=== PATIENT | male | born 1990 | race Caucasian/White ===

== ENCOUNTER 2016-09-19 13:38 | Inpatient (IN) | payer OTHER ==
[~2016-09-19] VITALS: Ht 188 cm; Wt 69.4 kg
[~2016-09-19 13:38] MED LIST: BACT800T5 PO; CYCL10TA PO; CYMB60CA3 PO; MOBI15TA PO; PRIL20CA PO; TYLE325T5 PO; ULTR50TA PO
[2016-09-19 15:24] LABS: MEAN CORPUSCULAR HEMOGLOBIN 31.6 pg (27.0-33.0); MEAN CORPUSCULAR HGB CONC 36.2 g/dl (32.0-36.5); MEAN CORPUSCULAR VOLUME 87.2 fl (80.0-96.0); RED CELL DISTRIBUTION WIDTH 12.4 % (11.5-14.5); WHITE BLOOD COUNT 7.7 K/mm3 (4.0-10.0)
[2016-09-19 15:46] LABS: AMPHETAMINES LEVEL URINE NEGATIVE (NEGATIVE); BENZODIAZEPINES URINE NEGATIVE (NEGATIVE); COCAINE METABOLITE URINE NEGATIVE (NEGATIVE); CONTROL LINE INT CTR LINE PRESENT; METHADONE URINE NEGATIVE (NEGATIVE); OPIATES URINE NEGATIVE (NEGATIVE); TRICYCLIC ANTIDEPRESS URINE NEGATIVE (NEGATIVE)
[2016-09-19 15:54] LABS: ALBUMIN 4.3 GM/DL (3.2-5.2); ALBUMIN/GLOBULIN RATIO 1.43 (1.00-1.93); ALKALINE PHOSPHATASE 89 U/L (45-117); ALT/SGPT 29 U/L (12-78); ANION GAP 9 MEQ/L (8-16); AST/SGOT 12 U/L (15-37); BILIRUBIN,DIRECT 0.2 MG/DL (0.0-0.2); BILIRUBIN,TOTAL 0.8 MG/DL (0.2-1.0); BLOOD UREA NITROGEN 14 MG/DL (7-18); CALCIUM LEVEL 9.6 MG/DL (8.5-10.1); CARBON DIOXIDE LEVEL 27 MEQ/L (21-32); CHLORIDE LEVEL 105 MEQ/L (98-107); CREATININE FOR GFR 0.91 MG/DL (0.70-1.30); GLOMERULAR FILTRATION RATE > 60.0 (>60); GLUCOSE, FASTING 122 MG/DL (70-105); POTASSIUM SERUM 4.3 MEQ/L (3.5-5.1); SODIUM LEVEL 141 MEQ/L (136-145); TOTAL PROTEIN 7.3 GM/DL (6.4-8.2)
[2016-09-19] MEDS ORDERED: LAMO150T PO (19:39)
[2016-09-19] MEDS ORDERED: GABA300C3 PO (19:39)
[2016-09-19] MEDS: lamoTRIgine 100MG TAB PO SCH (21:00)
[2016-09-19] MEDS: GABAPENTIN 300 MG CAP PO SCH (21:00)
--- NOTE | 2016-09-20 00:28 | EDDOCDS ---
Physician Documentation [facility] Name: Jef Multani Age: 25 yrs Sex: Male : 1990 Arrival Date: 09/19/2016 Time: 13:38 Bed 31 Private MD: Haile Vargas P Disposition: 09/19 18:52 Critical Care: Critical care not applicable. pc Disposition: 09/19/16 18:55 Hospitalization ordered by Harjeet Mathew for Inpatient Admission. Preliminary diagnosis are Major depressive disorder, recurrent, moderate, Suicidal ideations, Intentional self-harm by knife, Laceration without foreign body of forearm - multiple, bilateral: blake to be removed in 10 days. - Bed requested for Admit. - Status is Inpatient Admission. rw1 - Condition is Stable. - Problem is new. - Symptoms have improved. HPI: 14:37 This 25 yrs old Male presents to ER via Police [employer] with complaints of pc Suicidal Ideation. 14:37 The history is obtained from the patient. The patient presents to the emergency pc department with depression, suicide attempt, self-injury. At their worst, the symptoms were moderate. In the emergency department, the symptoms are unchanged. He became upset about an upcoming court date and took a knife to both forearms. He inflicted multiple superficial, non-gaping linear lacerations on his left forearm. He inflicted similar on his right forearm but with one that is 8cm in length and gaping, which will require closure. The patient has experienced similar episodes in the past, chronically. The patient has been recently seen by a psychiatrist. Historical: - Allergies: no known allergies; - Home Meds: 1. Cymbalta 60 mg Oral cpDR 2 caps once daily (Last dose: 09/19/2016 07:00) 2. Mobic 15 mg oral tab 1 tab once daily (Last dose: 09/19/2016 08:00) 3. Prilosec 40 mg Oral cpDR 1 cap once daily (Last dose: 09/19/2016 07:00) 4. Lamictal 150 mg Oral tab 1 tab 2 times per day (Last dose: 09/19/2016 07:00) 5. 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 - Hospitalizations: : No recent hospitalization is reported. - Immunization history:: Last tetanus immunization: < 5 years ago. - Family history: Not pertinent. - Social history:: the patient smokes cigarettes 2ppd the patient drinks alcohol. ROS: 14:37 All systems are negative except as listed. The psychiatric and neurological components pc are also addressed in the HPI. Exam: 14:37 General Appearance: alert, no acute distress. pc 14:37 ENT: ear, nose and throat normal, pharynx normal. 14:37 Eyes: pupils equal, round and reactive to light, extraocular motions intact. 14:37 Neck: The exam reveals no acute abnormalities. ROM is normal and painless. No nuchal rigidity is noted.. 14:37 Respiratory: breathing is even and unlabored, breath sounds are normal. 14:37 Cardiovascular: regular pulse rate, regular heart rhythm, normal heart sounds, equal and full pulses bilaterally. 14:37 Abdomen: soft, non-tender, no organomegaly, normal bowel sounds. 14:37 Skin: skin color is normal, warm, dry. 14:37 Extremities: grossly normal except: noted in the palmar aspect of left forearm: multiple linear superficial lacerations with hemostasis noted. All will be closed with Steri-Strips , noted in the palmar aspect of right forearm: multiple linear superficial lacerations noted with hemostasis. One 8cm laceration with wound edges 1cm separation that will require blake. 14:37 Neuro: alert, oriented to person, place and time, cranial nerves normal as tested, no motor deficits, no sensory deficits. 14:37 Psych: mood is normal, affect is appropriate. Vital Signs: 13:40 BP 154 / 89; Pulse 122; Resp 18; Temp 96.8; Pulse Ox 97% ; Weight 68.04 kg / 150 lbs; elp Height 6 ft. 2 in. (187.96 cm); Pain 0/10; 17:04 BP 132 / 81; Pulse 100; Resp 18; Temp 97.6; Pulse Ox 98% on R/A; dpm 20:40 BP 115 / 67; Pulse 98; Resp 16; Temp 98.8(TE); Pulse Ox 97% on R/A; Pain 0/10; rw1 0107 00:12 BP 121 / 81; Pulse 98; Resp 16; Temp 98.1(TE); Pulse Ox 96% on R/A; Pain 0/10; rw1 09/19 13:40 Body Mass Index 19.26 (68.04 kg, 187.96 cm) elp Procedures: 09/19 14:36 Laceration repair:. pc Laceration: 14:36 Wound Repair of 8cm ( 3.1in ) full thickness laceration to palmar aspect of right pc forearm. Linear shaped.. Hemostasis noted.. Distal neuro/vascular/tendon intact. Anesthesia: None with None. Wound prep: Simple cleansing with hibiclenz by provider, Wound irrigation with saline by provider. Skin closed with 10 thin layer [place] using Staple gun. Dressed with 4x4's, Kerlix. Patient tolerated well. MDM: 14:18 Consult PFS/PSA/Mask Former: Patient's case requires discussion with on-call pc Psychiatrist ordered. 14:18 PSA/PFS to call Nursing Manager Park, to enter patient data on [place] Safe Act if patient pc involuntarily admitted or transferred for SI or HI ordered. 14:18 Confirm accurate psychiatric medication list and times of last dosage ordered. pc 14:18 Detain Pt Until Medically/PFS Cleared ordered. pc 14:19 Acetaminophen Level Ordered. EDMS 14:19 Basic Metabolic Profile Ordered. EDMS 14:19 Complete Blood Count Ordered. EDMS 14:19 Drug Eval Toxicology ED Only Ordered. EDMS 14:19 Ethyl Alcohol (ethanol) Ordered. EDMS 14:19 Liver Profile Ordered. EDMS 14:19 Salicylate Level Ordered. EDMS 14:19 Thyroid Stimulating Hormone Ordered. EDMS 14:37 Differential diagnosis: depression, suicidal ideation, suicide attempt, multiple pc lacerations to both forearms. Plan: wound closure as above, labs, PFS eval. 16:00 Financial registration complete. zo 16:02 Acetaminophen Level Reviewed. pc 16:02 Basic Metabolic Profile Reviewed. pc 16:02 Liver Profile Reviewed. pc 16:02 Salicylate Level Reviewed. pc 16:02 Complete Blood Count Reviewed. pc 16:02 Drug Eval Toxicology ED Only Reviewed. pc 16:02 Ethyl Alcohol (ethanol) Reviewed. pc 16:02 Thyroid Stimulating Hormone Reviewed. pc 16:27 [facility] Payment Agreement was scanned into [employer] and attached to record. zo 16:30 REGULAR DIET PLASTIC [place]+DIET ordered. EDMS 17:18 [facility] Legal paperwork was scanned into [employer] and attached to record. ac 18:52 The patient has been medically cleared for psychiatric evaluation, admission and/or pc transfer. [place] Safe Act reporting: The patient poses a significant risk to self or others, and PSA/PFS has notified the Nursing Manager Park and he/she will complete the required data security coordinator. Data reviewed: old medical records, vital signs, nurses notes, lab test results. Test interpretation: LAB - all labs as ordered have been reviewed, interpreted and considered in the overall management of the clinical presentation;. The patient has been re-examined and re-evaluated. The patient's symptoms have mildly improved after treatment. Disposition: The historical points, examination findings, and any diagnostic results supporting the provided diagnosis, were discussed with the patient or legal guardian. The need for further work-up and/or treatment in the hospital was explained. 20:51 Admit to [facility]: ordered. EDNE 20:51 E Legal paperwork was scanned into [employer] and attached to record. [facility] 20:55 Consult PFS/PSA/Mask Former: Patient's case requires discussion with on-call rw1 Psychiatrist complete. 20:55 PSA/PFS to call Nursing Manager Park, to enter patient data on [place] Safe [place] if patient rw1 involuntarily admitted or transferred for SI or HI complete. Signatures: Dispatcher [employer] EDNE rToy Valadez MD MD pc Carter, Andy, PSA PSA Harman An LPN FOOD COUNSELOR rw1 Jose M Mayen Matthew, RN RN ml6 Ana Luisa Mckeon, PSA PSA [facility] The chart was reviewed and I authenticate all verbal orders and agree with the evaluation and treatment provided.Attachments: 16:27 [facility] Payment Agreement zo MTDD
--- NOTE | 2016-09-20 00:28 | EDDOCDS ---
Nurse's Notes [facility] Name: Jef Multani Age: 25 yrs Sex: Male : 1990 Arrival Date: 09/19/2016 Time: 13:38 Bed 31 Private MD: Haile Vargas P Diagnosis: Major depressive disorder, recurrent, moderate;Suicidal ideations;Intentional self-harm by knife;Laceration without foreign body of forearm-multiple, bilateral: blake to be removed in 10 days Presentation: 09/19 13:52 Presenting complaint: Patient states: states that he was upset about his court date ml6 yesterday, states was upset so he made cuts down both of his forearms and then attempted a cut across his throat. Mental Health Triage Level: Level 2: 94.1. Adult Sepsis Screening: The patient does not have new or worsening altered mentation. Patient's respiratory rate is less than 22. Systolic blood pressure is greater than 100. Patient has a qSOFA score of 0- Negative Sepsis Screen. Mental Health Triage Level: Level 2:. Suicide/Homicide risk assessment- the patient denies having any suicidal and/or homicidal ideations and does not present with any other emotional, behavioral or mental health complaints. Status: Patient is not a information services manager or dependent. Transition of care: patient was not received from another setting of care. 13:52 Acuity: DEMETRI Level 3 ml6 13:52 Method Of Arrival: Police Car ml6 Triage Assessment: 14:30 General: Appears in no apparent distress, Behavior is cooperative, pleasant. Pain: jo3 Denies pain. HIV screening NA for this visit Offered previously. Neurological: Level of Consciousness is awake, alert, Oriented to person, place, time. Respiratory: Airway is patent Respiratory effort is even, unlabored. Historical: - Allergies: no known allergies; - Home Meds: 1. Cymbalta 60 mg Oral cpDR 2 caps once daily (Last dose: 09/19/2016 07:00) 2. Mobic 15 mg oral tab 1 tab once daily (Last dose: 09/19/2016 08:00) 3. Prilosec 40 mg Oral cpDR 1 cap once daily (Last dose: 09/19/2016 07:00) 4. Lamictal 150 mg Oral tab 1 tab 2 times per day (Last dose: 09/19/2016 07:00) 5. 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 - Hospitalizations: : No recent hospitalization is reported. - Immunization history:: Last tetanus immunization: < 5 years ago. - Family history: Not pertinent. - Social history:: the patient smokes cigarettes 2ppd the patient drinks alcohol. Screenin:40 Infection Control. elp 15:10 Screening information is obtained from the patient. Fall risk: No risks identified. jo3 Assistance ADL's: requires no assistance with activities of daily living. Abuse/DV Screen: The patient / caregiver reports he/she is: not in a situation that causes fear, pain or injury. Nutritional screening: No deficits noted. Advance Directives: There is no active DNR order. home support is adequate. Assessment: 14:30 Reassessment: see triage assessment . jo3 15:10 General: Appears in no apparent distress, comfortable, Behavior is appropriate for age, jo3 cooperative, pleasant. General: security observing . Neurological: Level of Consciousness is awake, alert, Oriented to person, place, time. Cardiovascular: No deficits noted. Respiratory: Airway is patent Respiratory effort is even, unlabored. Derm: Skin is pink, warm & dry. Multiple lacerations to KIERSTEN UE. 12 blake placed to anterior FA by Dr Valadez. Bleeding controlled. Multiple other superficial lacerations noted. Covered with Telfa dressings. Multiple lacerations of varying depths noted to left FA and wrist. As per provider order, wounds closed with steri-strips and covered with Telfa. Pt reports being current with TDAP injection. Superficial lac to anterior neck. 16:15 Reassessment: Patient appears in no apparent distress at this time. Patient denies pain jo3 at this time. resting on stretcher at this time. respirations unlabored, deep and regular. Skin is pink, warm and dry. 17:37 General: Appears in no apparent distress, comfortable, Behavior is appropriate for age, jo3 cooperative. General: Security observing . Neurological: Level of Consciousness is awake, alert, Oriented to person, place, time. Cardiovascular: No deficits noted. Respiratory: No deficits noted. Airway is patent Respiratory effort is even, unlabored. 18:31 General: Appears in no apparent distress, comfortable, Behavior is appropriate for age, jo3 cooperative, pleasant. Neurological: Level of Consciousness is awake, alert, Oriented to person, place, time. Cardiovascular: No deficits noted. Respiratory: Airway is patent Respiratory effort is even, unlabored. Derm: Wound dressings to KIERSTEN UE remain intact. 19:30 Reassessment: Patient appears in no apparent distress at this time. resting quietly on rw1 stretcher, safety maintained will monitor.. 20:40 General: Appears in no apparent distress, comfortable, Behavior is appropriate for age, rw1 cooperative, pleasant. Pain: Denies pain. Neurological: Level of Consciousness is awake, alert, obeys commands, Oriented to person, place, time. Respiratory: Airway is patent Respiratory effort is even, unlabored. Derm: Skin is pink, warm & dry. normal, drsg's are all dry and intact. 21:35 Reassessment: Patient appears in no apparent distress at this time. resting quietly on rw1 stretcher, safety maintained will monitor.. 22:30 Reassessment: Patient appears in no apparent distress at this time. resting quietly on rw1 stretcher, safety maintained will monitor.. 23:18 General: Appears in no apparent distress, comfortable, Behavior is quiet, resting on rw1 stretcher with eyes closed, safety maintained. Respiratory: Airway is patent Respiratory effort is even, unlabored. Derm: Skin is pink, warm & dry. normal. 23:51 General: Appears in no apparent distress, comfortable, to be sleeping. Behavior is jo3 quiet. General: Appears asleep on stretcher. Awaiting admission at this time. Safety maintained . Neurological: No deficits noted. Cardiovascular: No deficits noted. Respiratory: Airway is patent Respiratory effort is even, unlabored. Derm: Skin is pink, warm & dry. Mental Health Eval: 17:41 Mental health consult is initiated at 17:20. Status: The patient is not a information services manager or dependent. [facility] Behavioral Health: The patient is not an established patient of [facility] Behavioral [facility]. Referral Information: Evaluation referral is generated by a police agency: [facility] Zack on . The patient was referred for evaluation because Pt was at court today, cut both arms and has superficial abrasions to neck.. 17:42 Subjective: The patients chief complaint is I have intermittent explosive disorder and ac I had to go to court today to answer charges of criminal contempt and forcible touching. Delusions are denied. Patient's mood is anxious, depressed, Hallucinations are denied. Mental Health history: Conduct Disorder, depression, self -mutilation, suicide gesture by pt cut both arms and neck. 18:06 Mental Health history: Mental Health Admissions: [facility] X2 after cutting self Current Outpatient Mental Health Services: Psychiatrist / Agency: Gaby Samuel at [facility] on a monthly basis. Therapist / Agency: "Lou" at [facility] on a weekly basis. Current living environment is The patient currently lives alone. Patient presents to Emergency Department with the following symptoms within the past 2 weeks: anger, anxiety, depressed mood, poor impulse control, relational problem, Patient has mutilated themselves by cutting their neck, right arm and left arm sleep disturbance - insomnia, suicidal ideation with attempt/gesture by cutting. 18:18 Substance abuse: Pt denies. Mental status exam: Patients appearance is appropriate, ac Patient's behavior is cooperative, Speech is normal. Affect is appropriate. Mood is anxious. depressed. Hallucinations are denied. Appetite is normal. Memory is good. Energy level is normal. Content of thought is normal. Thought process is intact. Cognitive level is oriented to person, place, time and situation Patient's insight is poor. Judgement is poor. Rapport with interviewer is good. Suicidal Ideation present with a plan to kill self by cutting. Homicidal ideation is not present. Disposition: Medically cleared for disposition by Troy Valadez MD Psychiatric Consult is performed by phone with Dr Anjel Meyer. [facility] Admission Criteria: The patient has had a suicide attempt in the recent past. The patient requires continuous observation and/or control to protect self, others or property. The patient's care requires a multi-modal treatment plan under close supervision and coordination due to the complexity and severity of the patient's symptoms. The patient requires administration and monitoring of psychoactive medications by skilled medical providers due to the side effects of the psychoactive medications or significant dosage adjustments. Legal Status: Patient's legal status will be Emergency admission: . [place] because patient was registered less than 6 months ago. DSM-V Differential Diagnosis: Unspecified Depressive Disorder (F32.9) Antisocial Personality Disorder (F 60.2). Narrative: Pt states he was upset because he had court today for criminal contempt and forcible touching against his estranged . Pt states he cut himself out of anger, not trying to kill himself. Pt denies AH/VH, no drug or ETOH use. Pt states he has court Thursday and Thursday. Pt minimizes sx and facat that he cut self enough to need blake. Vital Signs: 13:40 BP 154 / 89; Pulse 122; Resp 18; Temp 96.8; Pulse Ox 97% ; Weight 68.04 kg; Height 6 elp ft. 2 in. (187.96 cm); Pain 0/10; 17:04 BP 132 / 81; Pulse 100; Resp 18; Temp 97.6; Pulse Ox 98% on R/A; dpm 20:40 BP 115 / 67; Pulse 98; Resp 16; Temp 98.8(TE); Pulse Ox 97% on R/A; Pain 0/10; rw1 09/20 00:12 BP 121 / 81; Pulse 98; Resp 16; Temp 98.1(TE); Pulse Ox 96% on R/A; Pain 0/10; rw1 09/19 13:40 Body Mass Index 19.26 (68.04 kg, 187.96 cm) el Vitals: 09/19 13:40 Log In time N/A- police car arrival. RN notified that patient meets Red Flag criteria. [facility] ED Course: 13:39 Patient visited by Airam Florentino PCA. elp 13:39 Haile Vargas is Private Physician. el 13:39 Patient moved to Waiting [facility] 13:52 Patient moved to [address] 13:55 Patient visited by Juvenal Bingham RN. ml6 13:59 Triage Initiated ml6 14:04 Pt greeted and oriented to ED. Patient advised of names of staff involved in care, dpm location of call [place], wait times and NPO status. Patient has correct armband on for positive identification. Placed in gown. Placed in psych safe attire. Bed in low position. Side rails up X 1. Security observing. Property removed, inventory done, secured in belongings bag- placed in locked locker. Placed in locker 4. Door closed. Noise minimized. Visitors limited. Lights dimmed. Moved to private room. Psych Safety Check: Location: Psych Room. Visual Assessment: Cooperative. 14:07 Troy Valadez MD is Attending Physician. pc 14:12 Patient visited by Atul Gregg. dpm 14:15 Patient visited by Atul Gregg. dpm 14:17 Patient visited by Troy Valadez MD. pc 14:30 Patient visited by Atul Gregg. dpm 14:45 Patient visited by Atul Gregg. dpm 15:00 Patient visited by Atul Gregg. dpm 15:10 The patient / caregiver is instructed regarding the plan of care and ED course. jo3 15:10 No IV's were initiated during this patient's visit. No procedures done that require jo3 assistance. Labs drawn. (by ED staff). Sent per order to lab. 15:11 Acetaminophen Level Sent. jo3 15:11 Basic Metabolic Profile Sent. jo3 15:11 Complete Blood Count Sent. jo3 15:11 Drug Eval Toxicology ED Only Sent. jo3 15:11 Ethyl Alcohol (ethanol) Sent. jo3 15:11 Liver Profile Sent. jo3 15:11 Salicylate Level Sent. jo3 15:11 Thyroid Stimulating Hormone Sent. jo3 15:13 Patient visited by Atul Gregg. dpm 15:29 Patient visited by Atul Gregg. dpm 15:44 Patient visited by Atul Gregg. dpm 16:06 Patient visited by Atul Gregg. dpm 16:24 Patient visited by Lorraine Dinh RN. jo3 16:27 [facility] Payment Agreement was scanned into [employer] and attached to record. zo 16:39 Patient visited by Atul Gregg. dpm 17:03 Patient visited by Atul Gregg. dpm 17:18 [facility] Legal paperwork was scanned into [employer] and attached to record. ac 17:22 Patient visited by Atul Gregg. dpm 17:37 Patient visited by Lorraine Dinh RN. jo3 17:53 Patient visited by Atul Gregg. dpm 18:06 Patient visited by Atul Gregg. dpm 18:22 Patient visited by Atul Gregg. dpm 18:32 Patient visited by Lorraine Dinh RN. jo3 18:45 Patient visited by Atul Gregg. dpm 18:55 Harjeet Mathew is Hospitalizing Provider. pc 19:09 Patient visited by Atul Gregg. dpm 19:10 Harman An LPN is Primary Nurse. rw1 19:26 Patient visited by Atul Gregg. dpm 19:46 Patient visited by Tye Dennison. tr 20:05 Patient visited by Tye Dennison. tr 20:15 Psych Safety Check: Location: Psych Room. Visual Assessment: Cooperative. tr 20:30 Psych Safety Check: Location: Psych Room. Visual Assessment: Cooperative. tr 20:47 Patient visited by Tye Dennison. tr 20:51 [facility] Legal paperwork was scanned into [employer] and attached to record. hm1 21:09 Patient visited by Tye Dennison. tr 21:18 Patient visited by Tye Dennison. tr 22:03 Patient visited by Tye Dennison. tr 22:18 Patient visited by Tye Dennison. tr 22:34 Patient visited by Tye Dennison. tr 22:37 Patient moved to 31 tr 23:56 Patient visited by Lorraine Dinh RN. jo3 09/20 00:07 Patient visited by Harman An LPN. rw1 Attachments: 17:18 [facility] Legal paperwork ac 20:51 [facility] Legal paperwork hm1 Order Results: Lab Order: Acetaminophen Level; SPEC'M 09/19/16 15:10 Test: ACETAMINOPHEN LEVEL; Value: < 2.0; Range: 10.0-30.0; Abnormal: Below low normal; Units: UG/ML; Status: F Lab Order: Basic Metabolic Profile; SPEC'M 09/19/16 15:10 Test: GLUCOSE, FASTING; Value: 122; Range: 70-105; Abnormal: Above high normal; Units: MG/DL; Status: F Test: BLOOD UREA NITROGEN; Value: 14; Range: 7-18; Units: MG/DL; Status: F Test: CREATININE FOR GFR; Value: 0.91; Range: 0.70-1.30; Units: MG/DL; Status: F Test: GLOMERULAR FILTRATION RATE; Value: > 60.0; Range: >60; Status: F Test: SODIUM LEVEL; Value: 141; Range: 136-145; Units: MEQ/L; Status: F Test: POTASSIUM SERUM; Value: 4.3; Range: 3.5-5.1; Units: MEQ/L; Status: F Test: CHLORIDE LEVEL; Value: 105; Range: 98-107; Units: MEQ/L; Status: F Test: CARBON DIOXIDE LEVEL; Value: 27; Range: 21-32; Units: MEQ/L; Status: F Test: ANION GAP; Value: 9; Range: 8-16; Units: MEQ/L; Status: F Test: CALCIUM LEVEL; Value: 9.6; Range: 8.5-10.1; Units: MG/DL; Status: F Test Note: ; Units are mL/min/1.73 m2 Chronic Kidney Disease Staging per NKF: Stage I & II GFR >=60 Normal to Mildly Decreased Stage III GFR 30-59 Moderately Decreased Stage IV GFR 15-29 Severely Decreased Stage V GFR <15 Very Little GFR Left ESRD GFR <15 on [employer]IC[employer] PROC[employer] Lab Order: Complete Blood Count; SPEC'M 09/19/16 15:10 Test: WHITE BLOOD COUNT; Value: 7.7; Range: 4.0-10.0; Units: K/mm3; Status: F Test: RED BLOOD COUNT; Value: 5.12; Range: 4.30-6.10; Units: M/mm3; Status: F Test: HEMOGLOBIN; Value: 16.2; Range: 14.0-18.0; Units: g/dl; Status: F Test: HEMATOCRIT; Value: 44.7; Range: 42.0-52.0; Units: %; Status: F Test: MEAN CORPUSCULAR VOLUME; Value: 87.2; Range: 80.0-96.0; Units: fl; Status: F Test: MEAN CORPUSCULAR HEMOGLOBIN; Value: 31.6; Range: 27.0-33.0; Units: pg; Status: F Test: MEAN CORPUSCULAR HGB CONC; Value: 36.2; Range: 32.0-36.5; Units: g/dl; Status: F Test: RED CELL DISTRIBUTION WIDTH; Value: 12.4; Range: 11.5-14.5; Units: %; Status: F Test: PLATELET COUNT, AUTOMATED; Value: 243; Range: 150-450; Units: k/mm3; Status: F Lab Order: Drug Eval Toxicology ED Only; SPEC'M 09/19/16 15:10 Test: AMPHETAMINES LEVEL URINE; Value: NEGATIVE; Range: NEGATIVE; Status: F Test: BARBITURATES URINE; Value: NEGATIVE; Range: NEGATIVE; Status: F Test: BENZODIAZEPINES URINE; Value: NEGATIVE; Range: NEGATIVE; Status: F Test: CANNABINOIDS URINE; Value: NEGATIVE; Range: NEGATIVE; Status: F Test: COCAINE METABOLITE URINE; Value: NEGATIVE; Range: NEGATIVE; Status: F Test: METHADONE URINE; Value: NEGATIVE; Range: NEGATIVE; Status: F Test: OPIATES URINE; Value: NEGATIVE; Range: NEGATIVE; Status: F Test: TRICYCLIC ANTIDEPRESS URINE; Value: NEGATIVE; Range: NEGATIVE; Status: F Test Note: ; ALL PRESUMPTIVE POSITIVE FINDINGS ARE UNCONFIRMED NORMAL VALUES THRESHOLD IN NG/ML AMPHETAMINES 1000 METHAMPHETAMINES 1000 BARBITURATES 300 BENZODIAZEPINES 300 CANNABINOIDS (THC) 50 COCAINE METABOLITE 300 METHADONE 300 OPIATES 300 PHENCYCLIDINE 25 TRICYCLIC ANTIDEPRESSANTS 1000 RESULTS ARE FOR MEDICAL PURPOSES ONLY. ALL URINE SPECIMENS WILL BE SAVED FOR 3 DAYS. IF CONFIRMATION OF A PRESUMPTIVE POSTIVE SCREEN RESULT IS DESIRED, CALL CHEMISTRY ([phone]) AND REQUEST URINE TO BE SENT TO REFERENCE LAB. FOR A LIST OF CLOSELY RELATED COMPOUNDS PLEASE CALL THE LAB. Lab Order: Ethyl Alcohol (ethanol); SPEC'M 09/19/16 15:10 Test: ETHYL ALCOHOL (ETHANOL); Value: 0.004; Range: 0.000-0.010; Units: %; Status: F Lab Order: Liver Profile; SPEC'M 09/19/16 15:10 Test: AST/SGOT; Value: 12; Range: 15-37; Abnormal: Below low normal; Units: U/L; Status: F Test: ALT/SGPT; Value: 29; Range: 12-78; Units: U/L; Status: F Test: ALKALINE PHOSPHATASE; Value: 89; Range: 45-117; Units: U/L; Status: F Test: BILIRUBIN,TOTAL; Value: 0.8; Range: 0.2-1.0; Units: MG/DL; Status: F Test: BILIRUBIN,DIRECT; Value: 0.2; Range: 0.0-0.2; Units: MG/DL; Status: F Test: TOTAL PROTEIN; Value: 7.3; Range: 6.4-8.2; Units: GM/DL; Status: F Test: ALBUMIN; Value: 4.3; Range: 3.2-5.2; Units: GM/DL; Status: F Test: ALBUMIN/GLOBULIN RATIO; Value: 1.43; Range: 1.00-1.93; Status: F Lab Order: Salicylate Level; SPEC'M 09/19/16 15:10 Test: SALICYLATE LEVEL; Value: 4.1; Range: 5.0-30.0; Abnormal: Below low normal; Units: MG/DL; Status: F Lab Order: Thyroid Stimulating Hormone; SPEC'M 09/19/16 15:10 Test: THYROID STIMULATING HORMONE; Value: 1.410; Range: 0.358-3.740; Units: uIU/ML; Status: F Outcome: 18:55 Decision to Hospitalize by Provider. 20:58 Discharge Assessment: Patient awake, alert and oriented x 3. No cognitive and/or rw1 functional deficits noted. Patient verbalized understanding of disposition instructions. patient administered narcotics - no. The following High Risk Discharge criteria are identified: Admitted to Psych accompanied by tech, via wheelchair, with chart. Condition: stable. No special radiology studies were completed. 09/20 00:27 Patient left the ED. rw1 Signatures: Troy Valadez MD MD pc Carter, Andy, PSA PSA Tye Gonzalez JenniferRN RN jo3 Harman An LPN LPN rw1 Jose M Mayen Matthew, RN RN ml6 Ana Luisa Mckeon, PSA PSA hm1 Petty BenitezRN RN Atul Cervantes dpm, Erin, PCA CHIEF TECHNICAL OFFICER elp Corrections: (The following items were deleted from the chart) 09/19 13:40 13:40 Log In Time: September 19, 2016 at 13:38 elp elp 18:05 17:41 Referral Information: Evaluation referral is generated by altagracia frias 18:58 18:18 Narrative: Pt states he was upset because he had court today for criminal ac contempt and forcible touching against his estranged ac MTDD
[2016-09-20 00:32] VITALS: BP 140/97
[2016-09-20] MEDS ORDERED: MOM 30ML SUSPENSION UDC PO PRN (02:30)
[2016-09-20] MEDS ORDERED: traZODone 50 MG TAB PO PRN (02:30)
[2016-09-20] MEDS ORDERED: MAALOX 30 ML SUSP *UDC PO PRN (02:30)
[2016-09-20 06:51] VITALS: BP 132/82
[2016-09-20] MEDS: GABAPENTIN 300 MG CAP PO SCH ×3 (08:49→21:24)
[2016-09-20] MEDS: DULoxetine 30 MG CAP (CYMBALTA) PO SCH (08:49)
[2016-09-20] MEDS: OMEPRAZOLE 20 MG CAP PO SCH (08:49)
[2016-09-20] MEDS: lamoTRIgine 100MG TAB PO SCH ×2 (08:50→21:24)
[2016-09-20] MEDS: MELOXICAM (MOBIC) 7.5 MG TAB PO SCH (08:50)
[2016-09-20 18:00] VITALS: BP 125/80
--- NOTE | 2016-09-21 02:23 | MHHPE ---
DATE OF ADMISSION: 09/20/2016 DATE OF SERVICE: 09/20/2016 CHIEF COMPLAINT: I was upset and cut myself and my called the cement tester assistant because she thought I was trying to kill myself. HISTORY OF PRESENTING ILLNESS: The patient is a 25-year-old [place]ian man with previous psychiatric hospitalizations, who was brought to the emergency department after he inflicted cuts on both of his arms due to being upset about current his criminal proceedings. He reports that he is facing charges related to criminal contempt and forcible touching and was upset over the prospect of going to custodial. He felt at the time that he has no support from anyone. The resulting injuries from the cuts were noted to be superficial and required no sutures. The patient states that he has had a lengthy history of psychiatric problems dating from childhood and characterized by explosive and aggression, mainly during angry outbursts and mood dysphoria. He reports previous diagnosis of intermittent explosive disorder. No reported symptoms suggestive of bipolar, anxiety, and psychotic disorders. His symptoms as noted have no relationship to substance abuse or to any medical condition. PAST PSYCHIATRIC HISTORY: He has two previous psychiatric hospitalizations. Both admissions were related to suicidal attempts. According to the patient, he engaged in self-mutilating behavior. CURRENT MEDICATIONS: - Cymbalta 120 mg for pain management as well as depression - gabapentin for back pain - Lamictal 150 mg twice daily for mood symptoms - Mobic 15 mg daily - omeprazole 40 mg daily SUBSTANCE ABUSE HISTORY: He denies any illegal drug use. He admits to drinking occasionally, but states it is only sparingly. MEDICAL HISTORY: Notable for report of back pain. ALLERGIES: No reported allergies. SOCIAL HISTORY: He was born in [place] from a normal delivery with normal developmental milestones. He is the second of two siblings. He comes from an interfamily. He denies any history of head trauma, seizures or other early neurological problems. He denies any history of physical or sexual abuse. He graduated high school with an average grade of 81-82. He had some speech classes when he was in first grade, but other than that he has not been in any special education class. After high school, he went to work. His mother is unemployed and father works cutting trees. LEGAL HISTORY: He is previously charged with assaulting his girlfriend and presently being charged with sexually related offense. REVIEW OF SYSTEMS: Other than back pain, not pertinent. MENTAL STATUS EXAMINATION: The patient is of above-stated age. He is noted to be of average height and normal build. He has dressings on both his lower arms, which are the areas of self-inflicted superficial cuts. He is calm and cooperative. He relates in a conversational manner. Maintains eye contact. Speech is fluent. No abnormal thought process. No evidence of delusions or hallucination. He describes his mood as currently okay, but says that he becomes sporadically depressed and would act out. Affect is mood congruent. He denies current suicidal, homicidal ideation thoughts, plan or intent. Cognitively, he is alert and oriented to person, place and time. Judgment is currently not impaired and insight is limited. Impulse control historically inadequate. DIAGNOSIS: Disruptive mood dysregulation disorder. PROBLEM LIST: 1. Impulsivity. 2. Risk for self-abuse/suicide. PLAN: He will be provided with safety precautions as per protocol. He will be continued on his current medications with ongoing reviews. Psychotherapeutic interventions including individual, group and activities will form the mainstay of his treatment. Ongoing assessment and supportive therapy. Estimated length of stay: 3-5 days. MTDD
[2016-09-21 06:40] VITALS: BP 119/57
[2016-09-21] MEDS: GABAPENTIN 300 MG CAP PO SCH ×3 (09:51→21:29)
[2016-09-21] MEDS: OMEPRAZOLE 20 MG CAP PO SCH (09:51)
[2016-09-21] MEDS: lamoTRIgine 100MG TAB PO SCH ×2 (09:51→21:29)
[2016-09-21] MEDS: DULoxetine 30 MG CAP (CYMBALTA) PO SCH (09:51)
[2016-09-21] MEDS: MELOXICAM (MOBIC) 7.5 MG TAB PO SCH (09:51)
[2016-09-21] MEDS: ACETAMINOPHEN TAB 650MG DOSE (2X325MG) PO PRN ×2 (12:12→21:29)
[2016-09-21 18:41] VITALS: BP 123/65
--- NOTE | 2016-09-21 23:29 | IPN ---
DATE: 09/21/2016 TREATMENT: The patient is seen and his treatment is reviewed. He currently is on his second day of inpatient admission. He was admitted due to inflicting superficial cuts on his arms during an enraged episode and he is diagnosed with disruptive mood dysregulation disorder. CURRENT MEDICATIONS: - duloxetine 120 mg daily - lamotrigine 150 mg twice a day - gabapentin 300 mg three times a day In addition to medication management, he is provided with group, individual and activity therapies. He reports today that he has been taking his medications and doing better. He says he wants to be discharged either tomorrow or Thursday to enable attend his court date on Thursday. He reports feeling much better, and no reported medication adverse events. OBSERVATION: Vital signs are relatively stable. Blood pressure 119/57, pulse 96, respirations 16 and temperature 96.3. He is observed to be calm, cooperative , appropriately dressed and groomed. Thought process is coherent, goal directed. No evidence of delusions or hallucination. His mood is not significantly depressed and no elated. He denies suicidal, homicidal thoughts, plans or intent. No evidence of medication related untoward effects. ASSESSMENT: The patient has adjusted relatively well and presently responding to treatments. He does not currently appear to be at imminent risk of harm to self or to others. At this point, he has demonstrated calm, and will be reassessed in 24 hours; if stable, he will be discharged with appropriate followup arrangements. DESTINI
[2016-09-22 06:42] VITALS: BP 131/78
[2016-09-22] MEDS: OMEPRAZOLE 20 MG CAP PO SCH (08:41)
[2016-09-22] MEDS: GABAPENTIN 300 MG CAP PO SCH (08:41)
[2016-09-22] MEDS: DULoxetine 30 MG CAP (CYMBALTA) PO SCH (08:41)
[2016-09-22] MEDS: lamoTRIgine 100MG TAB PO SCH (08:41)
[2016-09-22] MEDS: MELOXICAM (MOBIC) 7.5 MG TAB PO SCH (08:41)
--- NOTE | 2016-09-22 11:21 | IPNPDOC ---
Assessment/Plan Date Seen The patient was seen on 09/22/16. Problems Problems: (1) Lacerations of multiple sites without complication Status: Acute Problem Text: * Cooks intact Rt FA. * Steristrips intact Lt FA. * Clean dressings applied. * No signs of infection. No erythema/drainage. * Continue to keep area clean and dry. Monitor. Plan / VTE VTE Prophylaxis Ordered?: No (ambulatory) Subjective Review of Systems CC/HPI The patient is a 25-year-old male admitted with a reason for visit of Major Depression. Events since last encounter Pt with no concerns. States wounds healing well. Skin: Denies: Breakdown, Lesions, Rash Objective Physical Examination General Exam: Positive: Alert Eye Exam: Positive: PERRLA Chest Exam: Positive: Clear to auscultation, Normal air movement Heart Exam: Positive: Normal S1, Normal S2, Rate Normal, Regular Rhythm, Negative: Murmurs, Rubs Skin Exam: Positive: Nl turgor and temperature, Other skin issue (Cooks intact, no erythema/drainage. Steristrips intact, no erythema/drainage. ), Negative: Breakdown, Rash Vital Signs/I&O Vital Signs Date Time Temp Pulse Resp B/P Pulse Ox O2 Delivery O2 Flow Rate FiO2 09/22/16 06:42 96.7 89 16 131/78 Joie Farley Sep 22, 2016 11:21
--- NOTE | 2016-09-22 14:58 | HPE ---
DATE OF ADMISSION: 09/20/2015 HISTORY OF PRESENT ILLNESS (HPI): Please refer to the psychiatric history and evaluation for further details on this admission. This examination and history is intended for medical issues, which may need treatment, followup or consultation on this 25-year-old male. PRIMARY CARE PROVIDER: Dr. Lázaro Navarrete ALLERGIES: NO KNOWN ALLERGIES. SOCIAL HISTORY: He is . Lives alone. Ethyl alcohol (EtOH): In the last year he has only had a couple glasses of wine. Prior to that, he used to binge drink. Smokes one pack of cigarettes per day. Recreational drug use: None. LABORATORY STUDIES: CBC normal. Electrolytes normal. ETOH was 0.004. PAST MEDICAL HISTORY: 1. Posttraumatic stress disorder (PTSD). 2. Gastroesophageal reflux disease. 3. Chronic back pain secondary to a work accident in 2011. PAST SURGICAL HISTORY: Repair of right 5th metatarsal with plate and screws. FAMILY HISTORY: Noncontributory. HOME MEDICATIONS: - meloxicam 60 mg by mouth daily - omeprazole 20 mg by mouth daily - duloxetine 20 mg by mouth daily - gabapentin 300 mg by mouth three times a day - Lamictal 150 mg by mouth twice a day 10 systems review was done, and other than chronic back pain and occasional reflux well controlled with omeprazole he had no complaints. He did have some soreness in the areas of self-inflicted lacerations. PHYSICAL EXAMINATION: 25-year-old cooperative male in no acute distress. Height 74 inches. Weight 69.4 kg. Body mass index (BMI) 19.6. Blood pressure 125/80. Pulse 106. Respirations 16. Temperature 97. Patient is alert and oriented times three. Pupils equal and react to light. Extraocular movements (EOMs) intact. Cornea and sclera is clear. Conjunctiva is normal. No facial asymmetry. Pharynx, tongue and gum is pink and moist. Tongue is midline. Neck is supple, without lymphadenopathy. No thyromegaly. No goiter. anterior portion very superficial lacerations. No redness or drainage. Chest is clear to auscultation, without wheeze or retraction. Heart is regular. Abdomen benign. Bowel sounds positive. Genitourinary/rectal not done. Extremities show equal strength, full range of motion. No cyanosis, clubbing or edema. Left arm has several self-inflicted superficial lacerations that are Steri-Stripped. No redness or drainage. Right forearm has an approximately 4 inch laceration, which is well approximated. Derick are intact. No redness or drainage. Peripheral pulses are equal and palpable bilaterally. Hand pathology secretary are equal. IMPRESSION AND PLAN: 1. Psychiatric plan per psychiatry. 2. Lacerations in various stages of healing. Change dry dressing daily. Staple removal in approximately 7 days. 3. History of gastroesophageal reflux disease. Continue omeprazole. 4. History of chronic back pain, stable. No other acute medical issues.
--- NOTE | 2016-09-22 20:06 | MHDS ---
DATE OF ADMISSION: 09/20/2016 DATE OF DISCHARGE: 09/22/2016 HISTORY: The patient is a 25-year-old [place] male with previous psychiatric hospital admissions who was brought to the emergency department after he inflicted cuts on both of his arms due to being upset about his current criminal proceedings. He reports that he is facing charges related to criminal contempt and forcible touching and was upset over the prospect of going to senior care. He felt also that he had no support from anyone. The resulted injuries from the cuts were noted to be superficial and required no sutures. The patient reported a lengthy history of psychiatric problems dating from childhood characterized mostly by explosive anger and aggression, mainly during angry outbursts and mood dysphoria. He reported previous diagnosis of intermittent explosive disorder. No reported symptoms suggestive of bipolar, anxiety, and psychotic disorders. His symptoms as noted have no relationship to substance abuse or to any medical condition. PAST PSYCHIATRIC HISTORY: He has two previous psychiatric hospitalizations. Both admissions were related to suicidal attempts. According to the patient, he engaged in self-mutilating behaviors at the time. MEDICATIONS: - Cymbalta 120 mg for pain management - gabapentin for back pain - Lamictal 150 mg twice daily for mood symptoms - Mobic 15 mg daily HOSPITAL COURSE: On admission, patient was noted to be about his stated age. He was noted to be of average height and build. He was appropriately dressed. He had cuts over both of his lower arms, which on the areas were dressed. He was noted to be calm and cooperative and related in a conversational manner. Maintains fair eye contact. His speech was fluent and there were no abnormal thought disorders evident. He denied any form of delusional hallucination. He reported his mood at the time has been okay, but he becomes sporadic depressed and would act out. Affect was noted to be mood congruent. Judgment was fair and insight not impaired. Diagnosis on admission was disruptive mood dysregulation disorder. The patient was continued on his home medications and in addition was offered therapeutic programming including group, individual and activity therapies. He accepted his medications, tolerated same, and had no adverse effects. He also was noted to participate actively in his groups and in individual therapy. He progressively showed improvement and was noted not to be a management problem on the unit. His mood improved notably and he denied further thoughts, plan or intent of self harm or of homicide. VITAL SIGNS ON DISCHARGE: Blood pressure 131/78, pulse 89, respirations 16 and temperature 96.7. MENTAL STATUS ON DISCHARGE: Was noted to be fairly groomed and appropriately dressed. Speech was fluent and prosodic. Thought process current and goal-directed. No evidence of delusion. He denied any form of hallucination and was noted observed responding to internal stimuli. His mood was noted to be euthymic. Affect mood congruent. He denies suicidal thoughts, plan or intent as well as homicidal ideation. No medication related untoward effect evident. DISCHARGE DIAGNOSIS: Disruptive mood dysregulation disorder. DISCHARGE PLAN: Patient discharged for follow up with his primary mental health provider. He was discharged on his medications - duloxetine 120 mg orally daily - lamotrigine 150 mg orally twice daily - gabapentin 300 mg three times daily Discharge plan discussed with the patient and he demonstrated understanding. DESTINI
--- NOTE | 2016-09-23 10:16 | EDDOCDS ---
Physician Documentation [facility] Name: Jfe Multani Age: 25 yrs Sex: Male : 1990 Arrival Date: 09/19/2016 Time: 13:38 Bed 31 Private MD: Haile Vargas P Disposition: 09/19 18:52 Critical Care: Critical care not applicable. pc Disposition: 09/19/16 18:55 Hospitalization ordered by Harjeet Mathew for Inpatient Admission. Preliminary diagnosis are Major depressive disorder, recurrent, moderate, Suicidal ideations, Intentional self-harm by knife, Laceration without foreign body of forearm - multiple, bilateral: blake to be removed in 10 days. - Bed requested for Admit. - Status is Inpatient Admission. rw1 - Condition is Stable. - Problem is new. - Symptoms have improved. HPI: 14:37 This 25 yrs old Male presents to ER via Police Car with complaints of pc Suicidal Ideation. 14:37 The history is obtained from the patient. The patient presents to the emergency pc department with depression, suicide attempt, self-injury. At their worst, the symptoms were moderate. In the emergency department, the symptoms are unchanged. He became upset about an upcoming court date and took a knife to both forearms. He inflicted multiple superficial, non-gaping linear lacerations on his left forearm. He inflicted similar on his right forearm but with one that is 8cm in length and gaping, which will require closure. The patient has experienced similar episodes in the past, chronically. The patient has been recently seen by a psychiatrist. Historical: - Allergies: no known allergies; - Home Meds: 1. Cymbalta 60 mg Oral cpDR 2 caps once daily (Last dose: 09/19/2016 07:00) 2. Mobic 15 mg oral tab 1 tab once daily (Last dose: 09/19/2016 08:00) 3. Prilosec 40 mg Oral cpDR 1 cap once daily (Last dose: 09/19/2016 07:00) 4. Lamictal 150 mg Oral tab 1 tab 2 times per day (Last dose: 09/19/2016 07:00) 5. 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 - Hospitalizations: : No recent hospitalization is reported. - Immunization history:: Last tetanus immunization: < 5 years ago. - Family history: Not pertinent. - Social history:: the patient smokes cigarettes 2ppd the patient drinks alcohol. ROS: 14:37 All systems are negative except as listed. The psychiatric and neurological components pc are also addressed in the HPI. Exam: 14:37 General Appearance: alert, no acute distress. pc 14:37 ENT: ear, nose and throat normal, pharynx normal. 14:37 Eyes: pupils equal, round and reactive to light, extraocular motions intact. 14:37 Neck: The exam reveals no acute abnormalities. ROM is normal and painless. No nuchal rigidity is noted.. 14:37 Respiratory: breathing is even and unlabored, breath sounds are normal. 14:37 Cardiovascular: regular pulse rate, regular heart rhythm, normal heart sounds, equal and full pulses bilaterally. 14:37 Abdomen: soft, non-tender, no organomegaly, normal bowel sounds. 14:37 Skin: skin color is normal, warm, dry. 14:37 Extremities: grossly normal except: noted in the palmar aspect of left forearm: multiple linear superficial lacerations with hemostasis noted. All will be closed with Steri-Strips , noted in the palmar aspect of right forearm: multiple linear superficial lacerations noted with hemostasis. One 8cm laceration with wound edges 1cm separation that will require blake. 14:37 Neuro: alert, oriented to person, place and time, cranial nerves normal as tested, no motor deficits, no sensory deficits. 14:37 Psych: mood is normal, affect is appropriate. Vital Signs: 13:40 BP 154 / 89; Pulse 122; Resp 18; Temp 96.8; Pulse Ox 97% ; Weight 68.04 kg / 150 lbs; elp Height 6 ft. 2 in. (187.96 cm); Pain 0/10; 17:04 BP 132 / 81; Pulse 100; Resp 18; Temp 97.6; Pulse Ox 98% on R/A; dpm 20:40 BP 115 / 67; Pulse 98; Resp 16; Temp 98.8(TE); Pulse Ox 97% on R/A; Pain 0/10; rw1 0107 00:12 BP 121 / 81; Pulse 98; Resp 16; Temp 98.1(TE); Pulse Ox 96% on R/A; Pain 0/10; rw1 09/19 13:40 Body Mass Index 19.26 (68.04 kg, 187.96 cm) elp Procedures: 09/19 14:36 Laceration repair:. pc Laceration: 14:36 Wound Repair of 8cm ( 3.1in ) full thickness laceration to palmar aspect of right pc forearm. Linear shaped.. Hemostasis noted.. Distal neuro/vascular/tendon intact. Anesthesia: None with None. Wound prep: Simple cleansing with hibiclenz by provider, Wound irrigation with saline by provider. Skin closed with 10 thin layer Beverly using Staple gun. Dressed with 4x4's, Kerlix. Patient tolerated well. MDM: 14:18 Consult PFS/PSA/Roofing Plant Supervisor: Patient's case requires discussion with on-call pc Psychiatrist ordered. 14:18 PSA/PFS to call Nursing Associate Professor Computer Science, to enter patient data on [place] Safe Act if patient pc involuntarily admitted or transferred for SI or HI ordered. 14:18 Confirm accurate psychiatric medication list and times of last dosage ordered. pc 14:18 Detain Pt Until Medically/PFS Cleared ordered. pc 14:19 Acetaminophen Level Ordered. EDMS 14:19 Basic Metabolic Profile Ordered. EDMS 14:19 Complete Blood Count Ordered. EDMS 14:19 Drug Eval Toxicology ED Only Ordered. EDMS 14:19 Ethyl Alcohol (ethanol) Ordered. EDMS 14:19 Liver Profile Ordered. EDMS 14:19 Salicylate Level Ordered. EDMS 14:19 Thyroid Stimulating Hormone Ordered. EDMS 14:37 Differential diagnosis: depression, suicidal ideation, suicide attempt, multiple pc lacerations to both forearms. Plan: wound closure as above, labs, PFS eval. 16:00 Financial registration complete. zo 16:02 Acetaminophen Level Reviewed. pc 16:02 Basic Metabolic Profile Reviewed. pc 16:02 Liver Profile Reviewed. pc 16:02 Salicylate Level Reviewed. pc 16:02 Complete Blood Count Reviewed. pc 16:02 Drug Eval Toxicology ED Only Reviewed. pc 16:02 Ethyl Alcohol (ethanol) Reviewed. pc 16:02 Thyroid Stimulating Hormone Reviewed. pc 16:27 [facility] Payment Agreement was scanned into latakoo and attached to record. zo 16:30 REGULAR DIET PLASTIC MONTANO+DIET ordered. EDMS 17:18 [facility] Legal paperwork was scanned into latakoo and attached to record. ac 18:52 The patient has been medically cleared for psychiatric evaluation, admission and/or pc transfer. [place] Safe Act reporting: The patient poses a significant risk to self or others, and PSA/PFS has notified the Nursing Associate Professor Computer Science and he/she will complete the required senior clinical data analyst. Data reviewed: old medical records, vital signs, nurses notes, lab test results. Test interpretation: LAB - all labs as ordered have been reviewed, interpreted and considered in the overall management of the clinical presentation;. The patient has been re-examined and re-evaluated. The patient's symptoms have mildly improved after treatment. Disposition: The historical points, examination findings, and any diagnostic results supporting the provided diagnosis, were discussed with the patient or legal guardian. The need for further work-up and/or treatment in the hospital was explained. 20:51 Admit to [facility]: ordered. EDUT 20:51 E Legal paperwork was scanned into latakoo and attached to record. [facility] 20:55 Consult PFS/PSA/Roofing Plant Supervisor: Patient's case requires discussion with on-call rw1 Psychiatrist complete. 20:55 PSA/PFS to call Nursing Associate Professor Computer Science, to enter patient data on [place] Safe [place] if patient rw1 involuntarily admitted or transferred for SI or HI complete. Signatures: Dispatcher [employer] EDUT Troy Valadez MD MD pc Carter, Andy, PSA PSA Harman An LPN MACHINE GUN MECHANIC rw1 Jose M Mayen Matthew, RN RN ml6 Ana Luisa Mckeon, PSA PSA [facility] The chart was reviewed and I authenticate all verbal orders and agree with the evaluation and treatment provided.Attachments: 16:27 [facility] Payment Agreement zo Chart Complete MTDD
--- NOTE | 2016-09-23 10:16 | EDDOCDS ---
Nurse's Notes [facility] Name: Jef Multani Age: 25 yrs Sex: Male : 1990 Arrival Date: 09/19/2016 Time: 13:38 Bed 31 Private MD: Haile Vargas P Diagnosis: Major depressive disorder, recurrent, moderate;Suicidal ideations;Intentional self-harm by knife;Laceration without foreign body of forearm-multiple, bilateral: blake to be removed in 10 days Presentation: 09/19 13:52 Presenting complaint: Patient states: states that he was upset about his court date ml6 yesterday, states was upset so he made cuts down both of his forearms and then attempted a cut across his throat. Mental Health Triage Level: Level 2: 94.1. Adult Sepsis Screening: The patient does not have new or worsening altered mentation. Patient's respiratory rate is less than 22. Systolic blood pressure is greater than 100. Patient has a qSOFA score of 0- Negative Sepsis Screen. Mental Health Triage Level: Level 2:. Suicide/Homicide risk assessment- the patient denies having any suicidal and/or homicidal ideations and does not present with any other emotional, behavioral or mental health complaints. Status: Patient is not a regional service manager or dependent. Transition of care: patient was not received from another setting of care. 13:52 Acuity: DEMETRI Level 3 ml6 13:52 Method Of Arrival: Police Car ml6 Triage Assessment: 14:30 General: Appears in no apparent distress, Behavior is cooperative, pleasant. Pain: jo3 Denies pain. HIV screening NA for this visit Offered previously. Neurological: Level of Consciousness is awake, alert, Oriented to person, place, time. Respiratory: Airway is patent Respiratory effort is even, unlabored. Historical: - Allergies: no known allergies; - Home Meds: 1. Cymbalta 60 mg Oral cpDR 2 caps once daily (Last dose: 09/19/2016 07:00) 2. Mobic 15 mg oral tab 1 tab once daily (Last dose: 09/19/2016 08:00) 3. Prilosec 40 mg Oral cpDR 1 cap once daily (Last dose: 09/19/2016 07:00) 4. Lamictal 150 mg Oral tab 1 tab 2 times per day (Last dose: 09/19/2016 07:00) 5. 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 - Hospitalizations: : No recent hospitalization is reported. - Immunization history:: Last tetanus immunization: < 5 years ago. - Family history: Not pertinent. - Social history:: the patient smokes cigarettes 2ppd the patient drinks alcohol. Screenin:40 Infection Control. elp 15:10 Screening information is obtained from the patient. Fall risk: No risks identified. jo3 Assistance ADL's: requires no assistance with activities of daily living. Abuse/DV Screen: The patient / caregiver reports he/she is: not in a situation that causes fear, pain or injury. Nutritional screening: No deficits noted. Advance Directives: There is no active DNR order. home support is adequate. Assessment: 14:30 Reassessment: see triage assessment . jo3 15:10 General: Appears in no apparent distress, comfortable, Behavior is appropriate for age, jo3 cooperative, pleasant. General: security observing . Neurological: Level of Consciousness is awake, alert, Oriented to person, place, time. Cardiovascular: No deficits noted. Respiratory: Airway is patent Respiratory effort is even, unlabored. Derm: Skin is pink, warm & dry. Multiple lacerations to KIERSTEN UE. 12 blake placed to anterior FA by Dr Valadez. Bleeding controlled. Multiple other superficial lacerations noted. Covered with Telfa dressings. Multiple lacerations of varying depths noted to left FA and wrist. As per provider order, wounds closed with steri-strips and covered with Telfa. Pt reports being current with TDAP injection. Superficial lac to anterior neck. 16:15 Reassessment: Patient appears in no apparent distress at this time. Patient denies pain jo3 at this time. resting on stretcher at this time. respirations unlabored, deep and regular. Skin is pink, warm and dry. 17:37 General: Appears in no apparent distress, comfortable, Behavior is appropriate for age, jo3 cooperative. General: Security observing . Neurological: Level of Consciousness is awake, alert, Oriented to person, place, time. Cardiovascular: No deficits noted. Respiratory: No deficits noted. Airway is patent Respiratory effort is even, unlabored. 18:31 General: Appears in no apparent distress, comfortable, Behavior is appropriate for age, jo3 cooperative, pleasant. Neurological: Level of Consciousness is awake, alert, Oriented to person, place, time. Cardiovascular: No deficits noted. Respiratory: Airway is patent Respiratory effort is even, unlabored. Derm: Wound dressings to KIERSTEN UE remain intact. 19:30 Reassessment: Patient appears in no apparent distress at this time. resting quietly on rw1 stretcher, safety maintained will monitor.. 20:40 General: Appears in no apparent distress, comfortable, Behavior is appropriate for age, rw1 cooperative, pleasant. Pain: Denies pain. Neurological: Level of Consciousness is awake, alert, obeys commands, Oriented to person, place, time. Respiratory: Airway is patent Respiratory effort is even, unlabored. Derm: Skin is pink, warm & dry. normal, drsg's are all dry and intact. 21:35 Reassessment: Patient appears in no apparent distress at this time. resting quietly on rw1 stretcher, safety maintained will monitor.. 22:30 Reassessment: Patient appears in no apparent distress at this time. resting quietly on rw1 stretcher, safety maintained will monitor.. 23:18 General: Appears in no apparent distress, comfortable, Behavior is quiet, resting on rw1 stretcher with eyes closed, safety maintained. Respiratory: Airway is patent Respiratory effort is even, unlabored. Derm: Skin is pink, warm & dry. normal. 23:51 General: Appears in no apparent distress, comfortable, to be sleeping. Behavior is jo3 quiet. General: Appears asleep on stretcher. Awaiting admission at this time. Safety maintained . Neurological: No deficits noted. Cardiovascular: No deficits noted. Respiratory: Airway is patent Respiratory effort is even, unlabored. Derm: Skin is pink, warm & dry. Mental Health Eval: 17:41 Mental health consult is initiated at 17:20. Status: The patient is not a regional service manager or dependent. [facility] Behavioral Health: The patient is not an established patient of [facility] Behavioral Health. Referral Information: Evaluation referral is generated by a police agency: [facility] Zack on . The patient was referred for evaluation because Pt was at court today, cut both arms and has superficial abrasions to neck.. 17:42 Subjective: The patients chief complaint is I have intermittent explosive disorder and ac I had to go to court today to answer charges of criminal contempt and forcible touching. Delusions are denied. Patient's mood is anxious, depressed, Hallucinations are denied. Mental Health history: Conduct Disorder, depression, self -mutilation, suicide gesture by pt cut both arms and neck. 18:06 Mental Health history: Mental Health Admissions: [facility] X2 after cutting self Current Outpatient Mental Health Services: Psychiatrist / Agency: Gaby Samuel at [facility] on a monthly basis. Therapist / Agency: "Lou" at [facility] on a weekly basis. Current living environment is The patient currently lives alone. Patient presents to Emergency Department with the following symptoms within the past 2 weeks: anger, anxiety, depressed mood, poor impulse control, relational problem, Patient has mutilated themselves by cutting their neck, right arm and left arm sleep disturbance - insomnia, suicidal ideation with attempt/gesture by cutting. 18:18 Substance abuse: Pt denies. Mental status exam: Patients appearance is appropriate, ac Patient's behavior is cooperative, Speech is normal. Affect is appropriate. Mood is anxious. depressed. Hallucinations are denied. Appetite is normal. Memory is good. Energy level is normal. Content of thought is normal. Thought process is intact. Cognitive level is oriented to person, place, time and situation Patient's insight is poor. Judgement is poor. Rapport with interviewer is good. Suicidal Ideation present with a plan to kill self by cutting. Homicidal ideation is not present. Disposition: Medically cleared for disposition by Troy Valadez MD Psychiatric Consult is performed by phone with Dr Anjel Meyer. [facility] Admission Criteria: The patient has had a suicide attempt in the recent past. The patient requires continuous observation and/or control to protect self, others or property. The patient's care requires a multi-modal treatment plan under close supervision and coordination due to the complexity and severity of the patient's symptoms. The patient requires administration and monitoring of psychoactive medications by skilled medical providers due to the side effects of the psychoactive medications or significant dosage adjustments. Legal Status: Patient's legal status will be Emergency admission: . [place] is [place] applicable because patient was registered less than 6 months ago. DSM-V Differential Diagnosis: Unspecified Depressive Disorder (F32.9) Antisocial Personality Disorder (F 60.2). Narrative: Pt states he was upset because he had court today for criminal contempt and forcible touching against his estranged . Pt states he cut himself out of anger, not trying to kill himself. Pt denies AH/VH, no drug or ETOH use. Pt states he has court Thursday and Thursday. Pt minimizes sx and facat that he cut self enough to need blake. Vital Signs: 13:40 BP 154 / 89; Pulse 122; Resp 18; Temp 96.8; Pulse Ox 97% ; Weight 68.04 kg; Height 6 elp ft. 2 in. (187.96 cm); Pain 0/10; 17:04 BP 132 / 81; Pulse 100; Resp 18; Temp 97.6; Pulse Ox 98% on R/A; dpm 20:40 BP 115 / 67; Pulse 98; Resp 16; Temp 98.8(TE); Pulse Ox 97% on R/A; Pain 0/10; rw1 09/20 00:12 BP 121 / 81; Pulse 98; Resp 16; Temp 98.1(TE); Pulse Ox 96% on R/A; Pain 0/10; rw1 09/19 13:40 Body Mass Index 19.26 (68.04 kg, 187.96 cm) el Vitals: 09/19 13:40 Log In time N/A- police car arrival. RN notified that patient meets Red Flag criteria. [facility] ED Course: 13:39 Patient visited by Airam Florentino PCA. elp 13:39 Haile Vargas is Private Physician. el 13:39 Patient moved to Waiting [facility] 13:52 Patient moved to [address] 13:55 Patient visited by Juvenal Bingham RN. ml6 13:59 Triage Initiated ml6 14:04 Pt greeted and oriented to ED. Patient advised of names of staff involved in care, dpm location of call [place], wait times and NPO status. Patient has correct armband on for positive identification. Placed in gown. Placed in psych safe attire. Bed in low position. Side rails up X 1. Security observing. Property removed, inventory done, secured in belongings bag- placed in locked locker. Placed in locker 4. Door closed. Noise minimized. Visitors limited. Lights dimmed. Moved to private room. Psych Safety Check: Location: Psych Room. Visual Assessment: Cooperative. 14:07 Troy Valadez MD is Attending Physician. pc 14:12 Patient visited by Atul Gregg. dpm 14:15 Patient visited by Atul Gregg. dpm 14:17 Patient visited by Troy Valadez MD. pc 14:30 Patient visited by Atul Gregg. dpm 14:45 Patient visited by Atul Gregg. dpm 15:00 Patient visited by Atul Gregg. dpm 15:10 The patient / caregiver is instructed regarding the plan of care and ED course. jo3 15:10 No IV's were initiated during this patient's visit. No procedures done that require jo3 assistance. Labs drawn. (by ED staff). Sent per order to lab. 15:11 Acetaminophen Level Sent. jo3 15:11 Basic Metabolic Profile Sent. jo3 15:11 Complete Blood Count Sent. jo3 15:11 Drug Eval Toxicology ED Only Sent. jo3 15:11 Ethyl Alcohol (ethanol) Sent. jo3 15:11 Liver Profile Sent. jo3 15:11 Salicylate Level Sent. jo3 15:11 Thyroid Stimulating Hormone Sent. jo3 15:13 Patient visited by Atul Gregg. dpm 15:29 Patient visited by Atul Gregg. dpm 15:44 Patient visited by Atul Gregg. dpm 16:06 Patient visited by Atul Gregg. dpm 16:24 Patient visited by Lorraine Dinh RN. jo3 16:27 [facility] Payment Agreement was scanned into [employer] and attached to record. zo 16:39 Patient visited by Atul Gregg. dpm 17:03 Patient visited by Atul Gregg. dpm 17:18 [facility] Legal paperwork was scanned into [employer] and attached to record. ac 17:22 Patient visited by Atul Gregg. dpm 17:37 Patient visited by Lorraine Dinh RN. jo3 17:53 Patient visited by Atul Gregg. dpm 18:06 Patient visited by Atul Gregg. dpm 18:22 Patient visited by Atul Gregg. dpm 18:32 Patient visited by Lorraine Dinh RN. jo3 18:45 Patient visited by Atul Gregg. dpm 18:55 Harjeet Mathew is Hospitalizing Provider. pc 19:09 Patient visited by Atul Gregg. dpm 19:10 Harman An LPN is Primary Nurse. rw1 19:26 Patient visited by Atul Gregg. dpm 19:46 Patient visited by Tye Dennison. tr 20:05 Patient visited by Tye Dennison. tr 20:15 Psych Safety Check: Location: Psych Room. Visual Assessment: Cooperative. tr 20:30 Psych Safety Check: Location: Psych Room. Visual Assessment: Cooperative. tr 20:47 Patient visited by Tye Dennison. tr 20:51 [facility] Legal paperwork was scanned into [employer] and attached to record. hm1 21:09 Patient visited by Tye Dennison. tr 21:18 Patient visited by Tye Dennison. tr 22:03 Patient visited by Tye Dennison. tr 22:18 Patient visited by Tye Dennison. tr 22:34 Patient visited by Tye Dennison. tr 22:37 Patient moved to 31 tr 23:56 Patient visited by Lorraine Dinh RN. jo3 09/20 00:07 Patient visited by Harman An LPN. rw1 Attachments: 17:18 [facility] Legal paperwork ac 20:51 [facility] Legal paperwork hm1 Order Results: Lab Order: Acetaminophen Level; SPEC'M 09/19/16 15:10 Test: ACETAMINOPHEN LEVEL; Value: < 2.0; Range: 10.0-30.0; Abnormal: Below low normal; Units: UG/ML; Status: F Lab Order: Basic Metabolic Profile; SPEC'M 09/19/16 15:10 Test: GLUCOSE, FASTING; Value: 122; Range: 70-105; Abnormal: Above high normal; Units: MG/DL; Status: F Test: BLOOD UREA NITROGEN; Value: 14; Range: 7-18; Units: MG/DL; Status: F Test: CREATININE FOR GFR; Value: 0.91; Range: 0.70-1.30; Units: MG/DL; Status: F Test: GLOMERULAR FILTRATION RATE; Value: > 60.0; Range: >60; Status: F Test: SODIUM LEVEL; Value: 141; Range: 136-145; Units: MEQ/L; Status: F Test: POTASSIUM SERUM; Value: 4.3; Range: 3.5-5.1; Units: MEQ/L; Status: F Test: CHLORIDE LEVEL; Value: 105; Range: 98-107; Units: MEQ/L; Status: F Test: CARBON DIOXIDE LEVEL; Value: 27; Range: 21-32; Units: MEQ/L; Status: F Test: ANION GAP; Value: 9; Range: 8-16; Units: MEQ/L; Status: F Test: CALCIUM LEVEL; Value: 9.6; Range: 8.5-10.1; Units: MG/DL; Status: F Test Note: ; Units are mL/min/1.73 m2 Chronic Kidney Disease Staging per NKF: Stage I & II GFR >=60 Normal to Mildly Decreased Stage III GFR 30-59 Moderately Decreased Stage IV GFR 15-29 Severely Decreased Stage V GFR <15 Very Little GFR Left ESRD GFR <15 on BALANCE ASSEMBLER Lab Order: Complete Blood Count; SPEC'M 09/19/16 15:10 Test: WHITE BLOOD COUNT; Value: 7.7; Range: 4.0-10.0; Units: K/mm3; Status: F Test: RED BLOOD COUNT; Value: 5.12; Range: 4.30-6.10; Units: M/mm3; Status: F Test: HEMOGLOBIN; Value: 16.2; Range: 14.0-18.0; Units: g/dl; Status: F Test: HEMATOCRIT; Value: 44.7; Range: 42.0-52.0; Units: %; Status: F Test: MEAN CORPUSCULAR VOLUME; Value: 87.2; Range: 80.0-96.0; Units: fl; Status: F Test: MEAN CORPUSCULAR HEMOGLOBIN; Value: 31.6; Range: 27.0-33.0; Units: pg; Status: F Test: MEAN CORPUSCULAR HGB CONC; Value: 36.2; Range: 32.0-36.5; Units: g/dl; Status: F Test: RED CELL DISTRIBUTION WIDTH; Value: 12.4; Range: 11.5-14.5; Units: %; Status: F Test: PLATELET COUNT, AUTOMATED; Value: 243; Range: 150-450; Units: k/mm3; Status: F Lab Order: Drug Eval Toxicology ED Only; SPEC'M 09/19/16 15:10 Test: AMPHETAMINES LEVEL URINE; Value: NEGATIVE; Range: NEGATIVE; Status: F Test: BARBITURATES URINE; Value: NEGATIVE; Range: NEGATIVE; Status: F Test: BENZODIAZEPINES URINE; Value: NEGATIVE; Range: NEGATIVE; Status: F Test: CANNABINOIDS URINE; Value: NEGATIVE; Range: NEGATIVE; Status: F Test: COCAINE METABOLITE URINE; Value: NEGATIVE; Range: NEGATIVE; Status: F Test: METHADONE URINE; Value: NEGATIVE; Range: NEGATIVE; Status: F Test: OPIATES URINE; Value: NEGATIVE; Range: NEGATIVE; Status: F Test: TRICYCLIC ANTIDEPRESS URINE; Value: NEGATIVE; Range: NEGATIVE; Status: F Test Note: ; ALL PRESUMPTIVE POSITIVE FINDINGS ARE UNCONFIRMED NORMAL VALUES THRESHOLD IN NG/ML AMPHETAMINES 1000 METHAMPHETAMINES 1000 BARBITURATES 300 BENZODIAZEPINES 300 CANNABINOIDS (THC) 50 COCAINE METABOLITE 300 METHADONE 300 OPIATES 300 PHENCYCLIDINE 25 TRICYCLIC ANTIDEPRESSANTS 1000 RESULTS ARE FOR MEDICAL PURPOSES ONLY. ALL URINE SPECIMENS WILL BE SAVED FOR 3 DAYS. IF CONFIRMATION OF A PRESUMPTIVE POSTIVE SCREEN RESULT IS DESIRED, CALL CHEMISTRY ([phone]) AND REQUEST URINE TO BE SENT TO REFERENCE LAB. FOR A LIST OF CLOSELY RELATED COMPOUNDS PLEASE CALL THE LAB. Lab Order: Ethyl Alcohol (ethanol); SPEC'M 09/19/16 15:10 Test: ETHYL ALCOHOL (ETHANOL); Value: 0.004; Range: 0.000-0.010; Units: %; Status: F Lab Order: Liver Profile; SPEC'M 09/19/16 15:10 Test: AST/SGOT; Value: 12; Range: 15-37; Abnormal: Below low normal; Units: U/L; Status: F Test: ALT/SGPT; Value: 29; Range: 12-78; Units: U/L; Status: F Test: ALKALINE PHOSPHATASE; Value: 89; Range: 45-117; Units: U/L; Status: F Test: BILIRUBIN,TOTAL; Value: 0.8; Range: 0.2-1.0; Units: MG/DL; Status: F Test: BILIRUBIN,DIRECT; Value: 0.2; Range: 0.0-0.2; Units: MG/DL; Status: F Test: TOTAL PROTEIN; Value: 7.3; Range: 6.4-8.2; Units: GM/DL; Status: F Test: ALBUMIN; Value: 4.3; Range: 3.2-5.2; Units: GM/DL; Status: F Test: ALBUMIN/GLOBULIN RATIO; Value: 1.43; Range: 1.00-1.93; Status: F Lab Order: Salicylate Level; SPEC'M 09/19/16 15:10 Test: SALICYLATE LEVEL; Value: 4.1; Range: 5.0-30.0; Abnormal: Below low normal; Units: MG/DL; Status: F Lab Order: Thyroid Stimulating Hormone; SPEC'M 09/19/16 15:10 Test: THYROID STIMULATING HORMONE; Value: 1.410; Range: 0.358-3.740; Units: uIU/ML; Status: F Outcome: 18:55 Decision to Hospitalize by Provider. 20:58 Discharge Assessment: Patient awake, alert and oriented x 3. No cognitive and/or rw1 functional deficits noted. Patient verbalized understanding of disposition instructions. patient administered narcotics - no. The following High Risk Discharge criteria are identified: Admitted to Psych accompanied by tech, via wheelchair, with chart. Condition: stable. No special radiology studies were completed. 09/20 00:27 Patient left the ED. rw1 Signatures: Troy Valadez MD MD pc Carter, Andy, PSA PSA Tye Gonzalez JenniferRN RN jo3 Harman An LPN LPN rw1 Jose M Mayen Matthew, RN RN ml6 Ana Luisa Mckeon, PSA PSA hm1 Petty BenitezRN RN Atul Cervantes dpm, Erin, PCA [employer] elp Corrections: (The following items were deleted from the chart) 09/19 13:40 13:40 Log In Time: September 19, 2016 at 13:38 elp elp 18:05 17:41 Referral Information: Evaluation referral is generated by altagracia frias 18:58 18:18 Narrative: Pt states he was upset because he had court today for criminal ac contempt and forcible touching against his estranged ac Chart Complete MTDD
--- NOTE | 2016-09-23 10:16 | EDDOCDS ---
Physician Documentation [facility] Name: Jef Multani Age: 25 yrs Sex: Male : 1990 Arrival Date: 09/19/2016 Time: 13:38 Bed 31 Private MD: Haile Vargas P Disposition: 09/19 18:52 Critical Care: Critical care not applicable. pc Disposition: 09/19/16 18:55 Hospitalization ordered by Harjeet Mathew for Inpatient Admission. Preliminary diagnosis are Major depressive disorder, recurrent, moderate, Suicidal ideations, Intentional self-harm by knife, Laceration without foreign body of forearm - multiple, bilateral: blake to be removed in 10 days. - Bed requested for Admit. - Status is Inpatient Admission. rw1 - Condition is Stable. - Problem is new. - Symptoms have improved. HPI: 14:37 This 25 yrs old Male presents to ER via Police Car with complaints of pc Suicidal Ideation. 14:37 The history is obtained from the patient. The patient presents to the emergency pc department with depression, suicide attempt, self-injury. At their worst, the symptoms were moderate. In the emergency department, the symptoms are unchanged. He became upset about an upcoming court date and took a knife to both forearms. He inflicted multiple superficial, non-gaping linear lacerations on his left forearm. He inflicted similar on his right forearm but with one that is 8cm in length and gaping, which will require closure. The patient has experienced similar episodes in the past, chronically. The patient has been recently seen by a psychiatrist. Historical: - Allergies: no known allergies; - Home Meds: 1. Cymbalta 60 mg Oral cpDR 2 caps once daily (Last dose: 09/19/2016 07:00) 2. Mobic 15 mg oral tab 1 tab once daily (Last dose: 09/19/2016 08:00) 3. Prilosec 40 mg Oral cpDR 1 cap once daily (Last dose: 09/19/2016 07:00) 4. Lamictal 150 mg Oral tab 1 tab 2 times per day (Last dose: 09/19/2016 07:00) 5. 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 - Hospitalizations: : No recent hospitalization is reported. - Immunization history:: Last tetanus immunization: < 5 years ago. - Family history: Not pertinent. - Social history:: the patient smokes cigarettes 2ppd the patient drinks alcohol. ROS: 14:37 All systems are negative except as listed. The psychiatric and neurological components pc are also addressed in the HPI. Exam: 14:37 General Appearance: alert, no acute distress. pc 14:37 ENT: ear, nose and throat normal, pharynx normal. 14:37 Eyes: pupils equal, round and reactive to light, extraocular motions intact. 14:37 Neck: The exam reveals no acute abnormalities. ROM is normal and painless. No nuchal rigidity is noted.. 14:37 Respiratory: breathing is even and unlabored, breath sounds are normal. 14:37 Cardiovascular: regular pulse rate, regular heart rhythm, normal heart sounds, equal and full pulses bilaterally. 14:37 Abdomen: soft, non-tender, no organomegaly, normal bowel sounds. 14:37 Skin: skin color is normal, warm, dry. 14:37 Extremities: grossly normal except: noted in the palmar aspect of left forearm: multiple linear superficial lacerations with hemostasis noted. All will be closed with Steri-Strips , noted in the palmar aspect of right forearm: multiple linear superficial lacerations noted with hemostasis. One 8cm laceration with wound edges 1cm separation that will require blake. 14:37 Neuro: alert, oriented to person, place and time, cranial nerves normal as tested, no motor deficits, no sensory deficits. 14:37 Psych: mood is normal, affect is appropriate. Vital Signs: 13:40 BP 154 / 89; Pulse 122; Resp 18; Temp 96.8; Pulse Ox 97% ; Weight 68.04 kg / 150 lbs; elp Height 6 ft. 2 in. (187.96 cm); Pain 0/10; 17:04 BP 132 / 81; Pulse 100; Resp 18; Temp 97.6; Pulse Ox 98% on R/A; dpm 20:40 BP 115 / 67; Pulse 98; Resp 16; Temp 98.8(TE); Pulse Ox 97% on R/A; Pain 0/10; rw1 0107 00:12 BP 121 / 81; Pulse 98; Resp 16; Temp 98.1(TE); Pulse Ox 96% on R/A; Pain 0/10; rw1 09/19 13:40 Body Mass Index 19.26 (68.04 kg, 187.96 cm) elp Procedures: 09/19 14:36 Laceration repair:. pc Laceration: 14:36 Wound Repair of 8cm ( 3.1in ) full thickness laceration to palmar aspect of right pc forearm. Linear shaped.. Hemostasis noted.. Distal neuro/vascular/tendon intact. Anesthesia: None with None. Wound prep: Simple cleansing with hibiclenz by provider, Wound irrigation with saline by provider. Skin closed with 10 thin layer Monroe using Staple gun. Dressed with 4x4's, Kerlix. Patient tolerated well. MDM: 14:18 Consult PFS/PSA/Inter Com Servicer: Patient's case requires discussion with on-call pc Psychiatrist ordered. 14:18 PSA/PFS to call Nursing Evp Head [employer] Experience Strategy, to enter patient data on [place] Safe Act if patient pc involuntarily admitted or transferred for SI or HI ordered. 14:18 Confirm accurate psychiatric medication list and times of last dosage ordered. pc 14:18 Detain Pt Until Medically/PFS Cleared ordered. pc 14:19 Acetaminophen Level Ordered. EDMS 14:19 Basic Metabolic Profile Ordered. EDMS 14:19 Complete Blood Count Ordered. EDMS 14:19 Drug Eval Toxicology ED Only Ordered. EDMS 14:19 Ethyl Alcohol (ethanol) Ordered. EDMS 14:19 Liver Profile Ordered. EDMS 14:19 Salicylate Level Ordered. EDMS 14:19 Thyroid Stimulating Hormone Ordered. EDMS 14:37 Differential diagnosis: depression, suicidal ideation, suicide attempt, multiple pc lacerations to both forearms. Plan: wound closure as above, labs, PFS eval. 16:00 Financial registration complete. zo 16:02 Acetaminophen Level Reviewed. pc 16:02 Basic Metabolic Profile Reviewed. pc 16:02 Liver Profile Reviewed. pc 16:02 Salicylate Level Reviewed. pc 16:02 Complete Blood Count Reviewed. pc 16:02 Drug Eval Toxicology ED Only Reviewed. pc 16:02 Ethyl Alcohol (ethanol) Reviewed. pc 16:02 Thyroid Stimulating Hormone Reviewed. pc 16:27 [place] [place] Agreement was scanned into [employer] and attached to record. zo 16:30 REGULAR DIET PLASTIC MONTANO+DIET ordered. EDMS 17:18 [facility] Legal paperwork was scanned into [employer] and attached to record. ac 18:52 The patient has been medically cleared for psychiatric evaluation, admission and/or pc transfer. [place] Safe Act reporting: The patient poses a significant risk to self or others, and PSA/PFS has notified the Nursing Evp Head [employer] Strategy and he/she will complete the required lead database developer. Data reviewed: old medical records, vital signs, nurses notes, lab test results. Test interpretation: LAB - all labs as ordered have been reviewed, interpreted and considered in the overall management of the clinical presentation;. The patient has been re-examined and re-evaluated. The patient's symptoms have mildly improved after treatment. Disposition: The historical points, examination findings, and any diagnostic results supporting the provided diagnosis, were discussed with the patient or legal guardian. The need for further work-up and/or treatment in the hospital was explained. 20:51 Admit to [facility]: ordered. EDAK 20:51 E Legal paperwork was scanned into [employer] and attached to record. [facility] 20:55 Consult PFS/PSA/Inter Com Servicer: Patient's case requires discussion with on-call rw1 Psychiatrist complete. 20:55 PSA/PFS to call Nursing Evp Head [employer] Experience Strategy, to enter patient data on [place] Safe [place] if patient rw1 involuntarily admitted or transferred for SI or HI complete. Signatures: Dispatcher [employer] EDAK Troy Valadez MD MD pc Carter, Andy, PSA PSA Harman An LPN SOCIAL WORK ADMINISTRATOR rw1 Jose M Mayen Matthew, RN RN ml6 Ana Luisa Mckeon, PSA PSA [facility] The chart was reviewed and I authenticate all verbal orders and agree with the evaluation and treatment provided.Attachments: 16:27 [facility] Payment Agreement zo Chart Complete MTDD
== END 2016-09-22 14:30 | disposition home or self-care (01) | DRG 753 ==
LOC: M ED 13:38 → M PSY 09-20 00:32
PROVIDERS: ADMIT Psychiatry & Neurology Psychiatry; ATTEND Psychiatry & Neurology Psychiatry
DX: F34.81 Disruptive mood dysregulation disorder (principal); Z79.899 Other long term (current) drug therapy

== ENCOUNTER 2020-05-20 22:43 | Inpatient (IN) | payer OTHER ==
[~2020-05-20] VITALS: Ht 180.3 cm; Wt 54.5 kg
[~2020-05-20 22:43] MED LIST changes: +CYCL-707 PO; -CYCL10TA PO; +GABA-843 PO; +LAMO150T3 PO; -PRIL20CA PO; +PRIL20CA9 PO; -ULTR50TA PO; +ULTR50TA8 PO
[2020-05-21 00:21] LABS: HEMATOCRIT 40.9 % (42.0-52.0); HEMOGLOBIN 14.3 g/dl (13.5-17.5); MEAN CORPUSCULAR HEMOGLOBIN 30.9 pg (27.0-33.0); MEAN CORPUSCULAR VOLUME 88.3 fl (80.0-96.0); PLATELET COUNT, AUTOMATED 199 10^3/uL (150-450); RED BLOOD COUNT 4.63 10^6/uL (4.30-6.10); WHITE BLOOD COUNT 5.4 10^3/uL (4.0-10.0)
[2020-05-21 00:49] LABS: AMPHETAMINES LEVEL URINE POSITIVE (NEGATIVE); BARBITURATES URINE NEGATIVE (NEGATIVE); BENZODIAZEPINES URINE NEGATIVE (NEGATIVE); CANNABINOIDS URINE NEGATIVE (NEGATIVE); COCAINE METABOLITE URINE NEGATIVE (NEGATIVE); METHADONE URINE NEGATIVE (NEGATIVE); OPIATES URINE NEGATIVE (NEGATIVE); PHENCYCLIDINE URINE NEGATIVE (NEGATIVE)
[2020-05-21 01:02] LABS: ACETAMINOPHEN LEVEL < 2.0 UG/ML (10.0-30.0); ALBUMIN 3.8 GM/DL (3.2-5.2); ALT/SGPT 27 U/L (12-78); BILIRUBIN,DIRECT 0.2 MG/DL (0.0-0.2); BILIRUBIN,TOTAL 0.8 MG/DL (0.2-1.0); BLOOD UREA NITROGEN 12 MG/DL (7-18); CALCIUM LEVEL 9.1 MG/DL (8.5-10.1); CARBON DIOXIDE LEVEL 30 MEQ/L (21-32); CHLORIDE LEVEL 104 MEQ/L (98-107); CREATININE FOR GFR 0.86 MG/DL (0.70-1.30); ETHYL ALCOHOL (ETHANOL) < 0.003 % (0.000-0.010); GLOMERULAR FILTRATION RATE > 60.0 (>60); GLUCOSE, FASTING 105 MG/DL (70-100); POTASSIUM SERUM 4.4 MEQ/L (3.5-5.1); SALICYLATE LEVEL < 1.7 MG/DL (5.0-30.0); SODIUM LEVEL 138 MEQ/L (136-145); THYROID STIMULATING HORMONE 0.984 uIU/ML (0.358-3.740); TOTAL PROTEIN 6.9 GM/DL (6.4-8.2)
[2020-05-21] MEDS ORDERED: lamoTRIgine 100MG TAB PO ONE (07:30)
[2020-05-21] MEDS ORDERED: DULoxetine 30 MG CAP (CYMBALTA) PO ONE (07:30)
[2020-05-21] MEDS ORDERED: OMEPRAZOLE 20 MG CAP PO ONE (07:30)
[2020-05-21] MEDS ORDERED: LAMI25TA PO (08:38)
[2020-05-21] MEDS ORDERED: CELE20TA PO (08:38)
[2020-05-21] MEDS ORDERED: CITA10TA5 PO (08:38)
[2020-05-21] MEDS ORDERED: OMEP-218 PO (08:38)
[2020-05-21] MEDS: OMEPRAZOLE 20 MG CAP PO ONE ×2 (08:45→10:20)
[2020-05-21] MEDS: lamoTRIgine 25 MG TAB PO ONE ×2 (08:45→10:20)
[2020-05-21] MEDS: CitaloPRAM (CeleXA) 10 MG TABLET PO ONE ×2 (08:45→10:20)
[2020-05-21] MEDS ORDERED: traZODone 50 MG TAB PO PRN (14:15)
[2020-05-21] MEDS ORDERED: ACETAMINOPHEN TAB 650MG DOSE (2X325MG) PO PRN (14:15)
[2020-05-21] MEDS ORDERED: MOM 30ML SUSPENSION UDC PO PRN (14:15)
[2020-05-21] MEDS ORDERED: MAALOX 30 ML SUSP *UDC PO PRN (14:15)
[2020-05-21 15:00] VITALS: BP 125/77
[2020-05-21] MEDS: OMEPRAZOLE 20 MG CAP PO SCH (22:09)
[2020-05-21] MEDS: lamoTRIgine 25 MG TAB PO SCH (22:09)
[2020-05-22] MEDS: lamoTRIgine 25 MG TAB PO SCH ×2 (10:54→22:53)
[2020-05-22] MEDS: OMEPRAZOLE 20 MG CAP PO SCH ×2 (10:54→22:53)
[2020-05-22] MEDS: CitaloPRAM (CeleXA) 20 MG TAB PO SCH (10:54)
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
[2020-05-22 18:00] VITALS: BP 122/77
[2020-05-23 06:26] VITALS: BP 146/81
[2020-05-23] MEDS: CitaloPRAM (CeleXA) 20 MG TAB PO SCH (09:34)
[2020-05-23] MEDS: OMEPRAZOLE 20 MG CAP PO SCH ×2 (09:34→20:06)
[2020-05-23] MEDS: lamoTRIgine 25 MG TAB PO SCH ×2 (09:34→20:06)
--- NOTE | 2020-05-23 11:53 | MHIPNPDOC ---
[facility] Progress Note Progress Note DATE OF SERVICE: 05/23/20 HISTORY: Patient is a 29 -year-old , male, who presented to [facility] on a 9.41 and admitted on a 9.39 legal status for depression and suicidal ideation. Patient reporting that his drug use is making him paranoid and depressed. VITAL SIGNS: See below. NEW TEST RESULTS: CURRENT MEDICATIONS: See below. MENTAL STATUS EXAMINATION: Patient is a 29 -year-old , male, who presented to [facility] on a 9.41 and admitted on a 9.39 legal status for depression and suicidal ideation. Patient reporting that his drug use is making him paranoid and depressed. He appears his stated age, his hygiene and grooming is fair. His eye contact is intermittent. He demonstrates no psychomotor agitation or retardation Speech: Is spontaneous, normal rate, tone and volume but mildly impoverished. Choosing to only answer questions but not elaborate Language skills are good Thought processes including: linear and goal oriented Thought content: reports depression and anxiety with no suicidal ideation Abstract reasoning, and computation: fair Description of associations: negative Description of abnormal or psychotic thoughts: negative Judgment: fair Insight: fair Orientation: alert and oriented Recent and remote memory: intact Attention span and concentration: fair Language: good Fund of knowledge: average Mood: depressed and anxious. Affect: constricted DIAGNOSES: Major Depressive Disorder, Recurrent Moderate Anxiety Disorder ASSESSMENT: Patient presents as withdrawn and guarded. He reports depression 5/10 with decreased anxiety, denies suicidal ideation. Denies that he is withdrawing from any substances and last use was Thursday of an unknown pill that he ingested. He denies that he needs to continue his hospitalization but patient has not been out of his room for good assessment or observations of his mood and affect. Reinforced with patient to be seen in the milieu and to attend groups. He verbalized understanding and states that he will maintain himself in the milieu. MANAGEMENT PLAN: Patient does not demonstrate that he is stable for discharge due to poor compliance with treatment regimen. Patient can be discharge raza rrow with continued reports of decreasing depression and no suicidal ideation. TIME SPENT: 20 minutes. Vital Signs Vital Signs Date Time Temp Pulse Resp B/P (MAP) Pulse Ox O2 Delivery O2 Flow Rate FiO2 05/23/20 06:26 97.5 92 16 146/81 (102) 98 Room Air Current Medications Current Medications Medications (Trade) Dose Ordered Sig/Adeel Route PRN Reason Start Time Stop Time Status Last Admin Dose Admin Acetaminophen (Tylenol Tab) 650 mg Q6HP PRN PO HEADACHE or DISCOMFORT 05/21/20 14:15 Al Hydrox/Mg Hydrox/Simethicone (Mylanta) 30 ml Q4HP PRN PO HEARTBURN/INDIGESTION 05/21/20 14:15 Citalopram Hydrobromide (CeleXA) 20 mg DAILY PO 05/22/20 09:00 05/23/20 09:34 Home Med (Med Rec Complete!) ASDIRECTED XX 05/21/20 11:45 05/21/20 11:47 DC Lamotrigine (LaMICtal) 25 mg BID PO 05/21/20 21:00 05/23/20 09:34 Magnesium Hydroxide (Milk Of Magnesia) 30 ml DAILYPRN PRN PO CONSTIPATION 05/21/20 14:15 Omeprazole (PriLOSEC) 20 mg BID PO 05/21/20 21:00 05/23/20 09:34 Trazodone HCl (Desyrel) 50 mg QHSP PRN PO INSOMNIA 05/21/20 14:15 Allergies Coded Allergies: No Known Allergies (Unverified , 10/28/14) SARA RODRIGUEZ NP May 23, 2020 11:53
--- NOTE | 2020-05-23 16:08 | HPEPDOC ---
General Date of Admission May 21, 2020 at 14:04 Date of Service: May 23, 2020 Chief Complaint The patient is a 29-year-old male admitted with a reason for visit of Unspecified Depressive Disorder. Source: Patient History of Present Illness 29 year old male admitted for depression with suicidal ideas and paranoia. I am seeing the patient for medical history and physical. Patient does not have any medical complaints today. Home Medications Scheduled Citalopram Hydrobromide (Celexa) 20 Mg Tablet, 20 MG PO DAILY, (Reported) Lamotrigine (Lamictal) 25 Mg Tablet, 50 MG PO DAILY, (Reported) Omeprazole (Omeprazole) 20 Mg Capsule.dr, 20 MG PO BID, (Reported) Allergies Coded Allergies: No Known Allergies (Unverified , 10/28/14) Past Medical History Medical History Posttraumatic stress disorder (PTSD). Gastroesophageal reflux disease. Chronic back pain secondary to a work accident in 2011. Poly substance abuse ETOH abuse Surgical History Repair of right 5th metatarsal with plate and screws. Family History Significant Family History: Diabetes Father Depression and Anxiety Mother Depression and Anxiety Older Brother Depression and Anxiety, 2008, shot himself. Social History * Smoker: current smoker Alcohol: heavy Drugs: other (methamphetamine, subaxone from streets) A-FIB/CHADSVASC A-FIB History Current/History of A-Fib/PAF?: No Review of Systems Constitutional: Denies: Chills, Fever, Night Sweats Eyes: Denies: Pain, Vision change ENT: Denies: Head Aches, Ear Pain, Dysphagia Skin: Denies: Rash, Lesions, Breakdown Cardiovascular: Denies: Chest Pain, Palpitations, Orthopnea, Paroxysmal Noc. Dyspnea, Lt Headedness Gastrointestinal: Denies: Nausea, Vomiting, Abdominal Pain, Diarrhea Genitourinary: Denies: Dysuria, Frequency, Incontinence, Retention Hematologic: Denies: Bruising, Bleeding Excessively Musculoskeletal: Denies: Neck Pain, Back Pain, Joint Pain, Muscle Pain, Spasms Neurological: Denies: Weakness, Numbness, Change in speech, Confusion Psych: Reports: Depression Physical Examination General Exam: Positive: Alert, Cooperative, No Acute Distress Eye Exam: Positive: PERRLA, Conjunctiva & lids normal, EOMI; Negative: Sclera icteric ENT Exam: Positive: Atraumatic, Mucous membr. moist/pink, Pharynx Normal Neck Exam: Positive: Supple; Negative: JVD, thyromegaly Chest Exam: Positive: Clear to auscultation, Normal air movement Heart Exam: Positive: Rate Normal, Regular Rhythm, Normal S1, Normal S2; Negative: Murmurs, Rubs Abdomen Exam: Positive: Normal bowel sounds, Soft; Negative: Tenderness, Hepatospenomegaly Extremity Exam: Positive: Normal pulses; Negative: Clubbing, Cyanosis, Edema Vital Signs Vital Signs Date Time Temp Pulse Resp B/P (MAP) Pulse Ox O2 Delivery O2 Flow Rate FiO2 05/23/20 06:26 97.5 92 16 146/81 (102) 98 Room Air Laboratory Data Microbiology Microbiology 05/21/20 Respiratory Virus Panel (PCR) (BOWEN) - Final, Complete Assessment/Plan 29 year old male admitted for depression with suicidal ideas. I am seeing the patient for medical history and physical. Depression as per psychiatry No active medical complaints will sign off. Plan / VTE VTE Prophylaxis Ordered?: No SAIRA FOX MD May 23, 2020 13:16
[2020-05-23 17:59] VITALS: BP 136/55
[2020-05-24 06:40] VITALS: BP 134/86
[2020-05-24] MEDS: lamoTRIgine 25 MG TAB PO SCH (10:08)
[2020-05-24] MEDS: CitaloPRAM (CeleXA) 20 MG TAB PO SCH (10:08)
[2020-05-24] MEDS: OMEPRAZOLE 20 MG CAP PO SCH (10:09)
[2020-05-24] MEDS ORDERED: LAMI25TA PO (11:10)
[2020-05-24] MEDS ORDERED: CELE20TA PO (11:10)
--- NOTE | 2020-05-24 11:25 | MHDSPDOC ---
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 Patient reporting that his drug use is making him paranoid and depressed. Patient reports that he had feelings of paranoia, he reports doing substances, not sure what it took, states, "It was something I found, I dont know what it was, had an E on it. I tested it and put it in water, I had a Fentanyl strip and went to the little line. I dont know if it was Fentanyl. Took it and I went to sleep. Mom and Dad woke me up for food and was paranoid. In my head thinking about all the past choices, bad decisions I have made and got very upset and didnt know what to do. I need to get the drug addiction taken care of first." He states that he was talking to a friend and that his friend called the police, I told her and said "I need help." HPI addiction to methamphetamine since February 2019. Other substances ETOH, [employer] INVOLVED: Please see the medical H + P by TREATMENT AND PROGRESS ON THE UNIT : Patient was admitted to unit on a 9.39 legal status. He was afforded the following treatment modalities: 1) Individual Therapy, 2) Group Therapy, 3) Medication Management, 4) Milieu Therapy and 5) Safe Environment HOSPITAL COURSE: Patient was restarted on his home medications, patient had reported that he was inconsistent with his medications. He stated that Citalo pram does work but also acknowledged that he often forgot to take his medication of Citalopram and Lamictal. This was reinforced and this provider was unable to justify an increase with patient's admission that he does not follow the medication regimen at home. DISCHARGE ASSESSMENT: Patient is stable for discharged. He denies suicidal ideation, has no planning or intent. He reports that his depression rating is 3/10, anxiety 0/10 and that he has no self-harm thoughts. MENTAL STATUS EXAMINATION ON DISCHARGE: Patient is a 29-year old , Employed, Domiciled, male, who is reporting a decrease in depression and suicidal ideation. He appears his stated age. He is calm and cooperative in the interview. Was woken up from sleep to be evaluated for discharge. His hygiene and grooming is fair, wearing hospital scrubs. Has several tattoos on his forearms He makes good eye contact, but mildly drowsy yawning quite a bit in the interview. No psychomotor agitation of retardation. Speech is spontaneous, normal rate, tone and volume Language skills are good Thought processes including: linear, reality-based, and goal-oriented Thought content: reports mild depression, no anxiety and no suicidal/homicidal ideation, planning or intent Abstract reasoning, and computation: fair Description of associations: is not observed with any and he denies Description of abnormal or psychotic thoughts: denies Judgment: fair Insight: fair Orientation to alert and oriented Recent and remote memory: intact Attention span and concentration: fair Language: good Fund of knowledge: average Mood: euthymic Affect: flat MEDICATIONS ON DISCHARGE: Citalopram 20 mg po daily Lamictal 25 mg po daily PLAN/FOLLOWUP ARRANGEMENTS: Patient to follow up with [facility]. Spoke with patient's father who feels that patient is safe to return home and he states that his son is welcome. He will provide transportation for his son, as he has an appointment in [place] later today. The amount of time spent in the coordination of care for this patient was approximately 30 minutes. Vital Signs/I&Os Vital Signs Date Time Temp Pulse Resp B/P (MAP) Pulse Ox O2 Delivery O2 Flow Rate FiO2 05/24/20 06:40 97.8 88 16 134/86 (102) 99 Room Air Laboratory Data Microbiology Microbiology 05/21/20 Respiratory Virus Panel (PCR) ([facility]) - Final, Complete Medications Scheduled Citalopram Hydrobromide (Celexa) 20 Mg Tablet, 20 MG PO DAILY for Depression, #7 Lamotrigine (Lamictal) 25 Mg Tablet, 50 MG PO DAILY for Mood Stabilizer, #7 Omeprazole (Omeprazole) 20 Mg Capsule.dr, 20 MG PO BID, (Reported) Allergies Coded Allergies: No Known Allergies (Unverified , 10/28/14) SARA RODRIGUEZ NP May 24, 2020 11:25
[2020-05-24 16:25] VITALS: BP 138/80
--- NOTE | 2020-05-24 18:29 | ECGEPIP ---
[facility] - ED Test Date: 2020-05-21 Pat Name: ROBERTO LOERA Department: Room: - Gender: Male Technician'S Helper: MARY : 1990 Requested By: SABINE VELÁZQUEZ Order Number: [id number] Reading MD: Francisco Cummings-Ghanshyam Measurements Intervals Steele Rate: 105 P: 70 MI: 129 QRS: 79 QRSD: 88 T: 42 QT: 339 QTc: 448 Interpretive Statements SINUS TACHYCARDIA ABNORMAL RHYTHM ECG\ NONSPECIFIC ST T WAVE CHANGES NO PRIOR TO COMPARE SEE DOWNTIME SCANNED REPORT
== END 2020-05-24 18:45 | disposition home or self-care (01) | DRG 751 ==
LOC: M ED 22:43 → M ED INP 05-21 14:04 → M PSY 05-21 15:00
PROVIDERS: ADMIT Psychiatry & Neurology Psychiatry; ATTEND Psychiatry & Neurology Psychiatry
DX: F33.1 Major depressive disorder, recurrent, moderate (principal); R45.851 Suicidal ideations; F41.9 Anxiety disorder, unspecified; F11.90 Opioid use, unspecified, uncomplicated; Z79.899 Other long term (current) drug therapy; K21.9 Gastro-esophageal reflux disease without esophagitis; M54.5 Low back pain

== ENCOUNTER 2021-12-11 16:57 | Emergency (ER) | payer OTHER ==
[~2021-12-11] VITALS: Ht 182.9 cm; Wt 66.4 kg
[2021-12-11 16:57] VITALS: BP 124/78
[~2021-12-11 16:57] MED LIST changes: +CELE20TA PO; +CITA10TA7 PO; -CYMB60CA3 PO; +CYMB60CA4 PO; +GABA-282 PO; -GABA-843 PO; +LAMI25TA PO; +OMEP-173 PO
[2021-12-11] MEDS ORDERED: FLUO10CA18 (17:33)
[2021-12-11] MEDS ORDERED: LAMO100T68 (17:33)
== END 2021-12-11 18:16 | disposition home or self-care (01) ==
LOC: M ED 16:57
DX: F32.9 Major depressive disorder, single episode, unspecified (principal); Z91.51 Personal history of suicidal behavior; Z87.891 Personal history of nicotine dependence; F19.10 Other psychoactive substance abuse, uncomplicated; Z79.899 Other long term (current) drug therapy

== ENCOUNTER → 2022-02-21 | Outpatient (REF) ==
[~2022-02-21] MED LIST changes: +FLUO10CA18; +LAMO100T68
== END ==
LOC: M LAB LCGH 15:31
DX: Z03.89 Encounter for observation for other suspected diseases and conditions ruled out